=== PATIENT | male | born 1950 | race American Indian/Alaskan Native ===

== ENCOUNTER 2021-03-02 08:19 | Emergency (ER) | payer MEDICARE ==
[2021-03-02 09:15] VITALS: BP 168/82
--- NOTE | 2021-03-02 10:14 | Emergency Department Report ---
ED General Adult HPI - General Chief complaint: Allergic Reaction Stated complaint: FACIAL SWELLING Time Seen by Provider: 03/02/21 09:49 Source: patient Mode of arrival: Ambulatory Limitations: No Limitations - History of Present Illness Initial comments: 71-year-old male with a past medical history of hypertension, diabetes, asthma, and [place], presents to the ER today with complaints of lip and facial swelling. Patient states that he noticed some mild swelling to his lip yesterday while drinking some juice, he states that since then the swelling to sleep has gotten worse including his cheeks. He denies any tongue or throat swelling. He states that because of his asthma he has chronic intermittent cough and wheezing, but this has has not gotten worse since his swelling developed and he denies any shortness of breath. Patient is on lisinopril which he has been taking for his high blood pressure. He denies any other new contacts such as foods, soaps, lotions, antibiotics or any new contacts. She reports no additional symptoms at this time. MD Complaint: Facial swelling -: Gradual - Related Data Previous Rx's Medication Instructions Recorded Last Taken Type methylPREDNISolone [Medrol 4MG 4 mg PO DAILY #1 tab.ds.pk 03/02/21 Unknown Rx DOSEPAK (21 tabs)] Allergies Allergy/AdvReac Type Severity Reaction Status Date / Time lisinopril AdvReac Swelling Verified 03/02/21 09:12 ED Review of Systems ROS: Stated complaint: FACIAL SWELLING Other details as noted in HPI Comment: All other systems reviewed and negative Constitutional: denies: chills, fever Eyes: other. denies: eye pain, eye discharge, vision change ENT: other (Facial/lip swelling). denies: ear pain, throat pain, dental pain, hearing loss, epistaxis, congestion Respiratory: denies: cough, orthopnea, shortness of breath, SOB with exertion, SOB at rest, wheezing Cardiovascular: denies: chest pain, palpitations, dyspnea on exertion, edema, syncope, paroxysmal nocturnal dyspnea Gastrointestinal: denies: abdominal pain, nausea, vomiting, diarrhea, constipation, hematemesis, melena, hematochezia Genitourinary: denies: urgency, dysuria, frequency, hematuria, discharge, testicular pain, testicular mass Musculoskeletal: denies: back pain, joint swelling, arthralgia Skin: denies: rash, lesions, change in color, change in hair/nails, pruritus Neurological: denies: headache, weakness, numbness, paresthesias, confusion, abnormal gait, vertigo Psychiatric: denies: anxiety, depression, auditory hallucinations, visual hallucinations, homicidal thoughts, suicidal thoughts Hematological/Lymphatic: denies: easy bleeding, easy bruising ED Past Medical Hx - Medications Home Medications: Home Medications Medication Instructions Recorded Confirmed Last Taken Type methylPREDNISolone [Medrol 4MG 4 mg PO DAILY #1 tab.ds.pk 03/02/21 Unknown Rx DOSEPAK (21 tabs)] ED Physical Exam - General Limitations: No Limitations General appearance: alert, in no apparent distress - Head Head exam: Present: atraumatic, normocephalic, normal inspection - Eye Eye exam: Present: normal appearance, PERRL, EOMI Pupils: Present: normal accommodation - ENT ENT exam: Present: normal exam, mucous membranes moist, TM's normal bilaterally, other (Moderate swelling noted to the upper lip, mild swelling noted to the lower lip, there is no tongue or swelling to the posterior pharynx) - Expanded ENT Exam Expanded Mouth exam: Present: normal external inspection. Absent: drooling, trismus, muffled voice, tongue normal, tongue elevation Throat exam: Positive: normal inspection - Neck Neck exam: Present: normal inspection, full ROM. Absent: meningismus - Respiratory Respiratory exam: Present: normal lung sounds bilaterally. Absent: respiratory distress, wheezes, rales, rhonchi, stridor - Cardiovascular Cardiovascular Exam: Present: regular rate, normal rhythm, normal heart sounds - Neurological Exam Neurological exam: Present: alert, oriented X3, CN II-XII intact, normal gait - Psychiatric Psychiatric exam: Present: normal affect, normal mood - Skin Skin exam: Present: intact ED Course Vital Signs 03/02/21 09:09 Temperature 98.3 F Pulse Rate 93 H Respiratory 20 Rate Blood Pressure 168/82 O2 Sat by Pulse 98 Oximetry ED Medical Decision Making - Medical Decision Making Patient with angioedema to face/lip likely secondary to JOCELYNE inhibitor (lisinopril). Patient has no trismus, no drooling, no stridor on exam, is not in any respiratory distress, no apparent tongue or posterior pharynx swelling; his airway appears to be intact. His chest is clear to auscultation. His vital signs are stable. Patient was also seen and evaluated by Dr. Stephani Rodrigez, see her note for detail. Patient will be given an IM injection of Decadron, he was instructed to stop the lisinopril and to continue taking his diltiazem until his follow-up with his PCP on March 04 for follow-up. Patient will be disposed home with a prescription for a Medrol Dosepak. Patient expressed understanding of all instructions and agree with plan. Patient was stable at time of discharge. Critical care attestation.: If time is entered above; I have spent that time in minutes in the direct care of this critically ill patient, excluding procedure time. ED Disposition Clinical Impression: JOCELYNE inhibitor-aggravated angioedema Disposition: HOME / SELF CARE / HOMELESS Is pt being admited?: No Does the pt Need Aspirin: No Condition: Stable Instructions: Angioedema, Ijpq-[id number] Additional Instructions: I recommend that you stop taking the lisinopril. Continue taking your diltiazem as prescribed. I recommend that you keep your appointment with your primary care doctor for March 04. Take the steroid pack as prescribed. Return to the ER if the swelling worsens, if your tongue and throat starts to swelling and you start having difficulty breathing. Prescriptions: methylPREDNISolone [Medrol 4MG DOSEPAK (21 tabs)] 4 mg PO DAILY #1 tab.ds.pk Referrals: PRIMARY CARE, [Primary Care Provider] - 3-5 Days Time of Disposition: 10:52 Print Language: LAO
[2021-03-02] MEDS ORDERED: dexAMETHasone 20 MG/5 ML VIAL IM ONE (10:16)
--- NOTE | 2021-03-02 10:21 | Event Note ---
Face to Face: For this encounter I have reviewed the PA/ECONOMICS CONSULTANT documentation, treatment plan, medical decision making, and I had face to face time with this patient. I evaluated patient: Patient has mild swelling of the lips. No oropharyngeal involvement otherwise. No involvement of the tongue or throat. He takes diltiazem in addition to lisinopril. I feel comfortable discontinuing lisinopril without adding another antihypertensive medication at this time. He has [facility] days on March 04. Advised him to take his discharge paperwork to his [facility] physician. I advised him to change his allergy status to allergic to lisinopril. He understands that this type of medication will cause worsening symptoms in the future. My colleagues will order steroid therapy and discharge from the emergency department.
== END 2021-03-02 11:25 | disposition home or self-care (01) ==
LOC: ED 08:19
DX: R60.9 Edema, unspecified (principal); T46.4X5A Adverse effect of angiotensin-converting-enzyme inhibitors, initial encounter; I10 Essential (primary) hypertension; J45.909 Unspecified asthma, uncomplicated
CPT/HCPCS: 96372; 99282; J1100

== ENCOUNTER 2021-06-18 17:18 | Inpatient (IN) | payer OTHER, MEDICARE ==
--- NOTE | 2021-06-18 17:56 | Emergency Department Report ---
HPI - General Chief Complaint: Neuro Symptoms/Deficit Time Seen by Provider: 06/18/21 17:37 - HPI HPI: 71-year-old -[place] male was originally brought in by his son for evaluation of a 2-day history of right-sided numbness and weakness. The initial triage note says that the patient was awake, alert, oriented, playing on his phone. When I went out to MSE 6 to evaluate the patient he was diaphoretic and unresponsive. We immediately wheeled the patient back to ER room #1 with the patient became more responsive. An Accu-Chek was done that was at about 115. The patient became oriented, AAO x3, and says that he did not know what just occurred. He has a past medical history of hypertension, [id number] diabetes and coronary artery disease with cardiac stents. He denies any headache, vision change, slurred speech. ED Past Medical Hx - Past Medical History Previous Medical History?: Yes Hx Hypertension: Yes Hx Heart Attack/AMI: Yes Hx Congestive Heart Failure: Yes Hx Asthma: Yes Hx COPD: Yes - Surgical History Hx Pacemaker: No - Social History Smoking Status: Current Every Day Smoker Substance Use Type: Alcohol, Prescribed - Medications Home Medications: Home Medications Medication Instructions Recorded Confirmed Last Taken Type methylPREDNISolone [Medrol 4MG 4 mg PO DAILY #1 tab.ds.pk 03/02/21 Unknown Rx DOSEPAK (21 tabs)] ED Review of Systems ROS: Stated complaint: NEURO SYMPTOMS Other details as noted in HPI Constitutional: diaphoresis, weakness Eyes: denies: eye pain, vision change ENT: denies: ear pain, throat pain Respiratory: wheezing. denies: cough Cardiovascular: denies: chest pain, edema Gastrointestinal: denies: abdominal pain, vomiting Genitourinary: denies: dysuria, discharge Musculoskeletal: denies: back pain, arthralgia Skin: denies: rash, lesions Neurological: weakness, numbness Physical Exam - Physical Exam Vital Signs: Vital Signs 06/18/21 17:20 Temperature 98.3 F Pulse Rate 54 L Respiratory 20 Rate Blood Pressure 139/58 O2 Sat by Pulse 99 Oximetry Physical Exam: GENERAL: The patient is ill-appearing. HENT: Normocephalic. Atraumatic. Patient has moist mucous membranes. EYES: Extraocular motions are intact. Pupils equal reactive to light bilaterally. NECK: Supple. Trachea is midline. CHEST/LUNGS: Clear to auscultation. There is no respiratory distress noted. HEART/CARDIOVASCULAR: Regular. There is no tachycardia. There is no murmur. ABDOMEN: Abdomen is soft, nontender. Patient has normal bowel sounds. There is no abdominal distention. SKIN: Patient is diaphoretic. NEURO: The patient is awake, alert, and oriented. The patient is cooperative. Subjective decrease sensation to the right side of the face, arm and leg when compared to the left. Mild right upper extremity pronator drift. Normal spe ech. MUSCULOSKELETAL: There is no tenderness or deformity. There is no limitation range of motion. ED Course Vital Signs 06/18/21 17:20 Temperature 98.3 F Pulse Rate 54 L Respiratory 20 Rate Blood Pressure 139/58 O2 Sat by Pulse 99 Oximetry - Consultations Consultation #1: 06/18/21 23:43 Patient was seen by the telemedicine neurologist, Dr. Loo, who did recommend CT angiography studies given the brief unresponsive episode I described. Her full recommendations are in the chart. ED Medical Decision Making - Lab Data Result diagrams: 06/18/21 17:59 06/18/21 17:59 Lab Results 06/18/21 06/18/21 06/18/21 Range/Units 17:42 17:59 17:59 WBC 3.0 L (4.5-11.0) K/mm3 RBC 4.59 (3.65-5.03) M/mm3 Hgb 14.9 (11.8-15.2) gm/dl Hct 44.9 (35.5-45.6) % MCV 98 H (84-94) fl MCH 32 (28-32) pg MCHC 33 (32-34) % RDW 15.8 H (13.2-15.2) % Plt Count 152 (140-440) K/mm3 Lymph % (Auto) 34.4 (13.4-35.0) % Barton % (Auto) 12.7 H (0.0-7.3) % Eos % (Auto) 1.7 (0.0-4.3) % Baso % (Auto) 1.1 (0.0-1.8) % Lymph # (Auto) 1.0 L (1.2-5.4) K/mm3 Barton # (Auto) 0.4 (0.0-0.8) K/mm3 Eos # (Auto) 0.1 (0.0-0.4) K/mm3 Baso # (Auto) 0.0 (0.0-0.1) K/mm3 Seg Neutrophils % 50.1 (40.0-70.0) % Seg Neutrophils # 1.5 L (1.8-7.7) K/mm3 PT 12.9 (12.2-14.9) Sec. INR 0.88 (0.87-1.13) APTT 33.6 (24.2-36.6) Sec. Thrombin Time 14.0 L (15.1-19.6) Sec. Sodium (137-145) mmol/L Potassium (3.6-5.0) mmol/L Chloride (98-107) mmol/L Carbon Dioxide (22-30) mmol/L Anion Gap mmol/L BUN (9-20) mg/dL Creatinine (0.8-1.3) mg/dL Estimated GFR ml/min BUN/Creatinine Ratio % Glucose (75-100) mg/dL POC Glucose 121 H (70-105) mg/dL Calcium (8.4-10.2) mg/dL Total Bilirubin (0.1-1.2) mg/dL AST (5-40) units/L ALT (7-56) units/L Alkaline Phosphatase (35-129) units/L Total Creatine Kinase (55-170) units/L CK-MB (CK-2) (0.0-4.0) ng/mL CK-MB (CK-2) Rel Index (0-4) Troponin T (0.00-0.029) ng/mL Total Protein (6.3-8.2) g/dL Albumin (3.9-5) g/dL Albumin/Globulin Ratio % Plasma/Serum Alcohol (0-0.07) % 06/18/21 06/18/21 Range/Units 17:59 17:59 WBC (4.5-11.0) K/mm3 RBC (3.65-5.03) M/mm3 Hgb (11.8-15.2) gm/dl Hct (35.5-45.6) % MCV (84-94) fl MCH (28-32) pg MCHC (32-34) % RDW (13.2-15.2) % Plt Count (140-440) K/mm3 Lymph % (Auto) (13.4-35.0) % Barton % (Auto) (0.0-7.3) % Eos % (Auto) (0.0-4.3) % Baso % (Auto) (0.0-1.8) % Lymph # (Auto) (1.2-5.4) K/mm3 Barton # (Auto) (0.0-0.8) K/mm3 Eos # (Auto) (0.0-0.4) K/mm3 Baso # (Auto) (0.0-0.1) K/mm3 Seg Neutrophils % (40.0-70.0) % Seg Neutrophils # (1.8-7.7) K/mm3 PT (12.2-14.9) Sec. INR (0.87-1.13) APTT (24.2-36.6) Sec. Thrombin Time (15.1-19.6) Sec. Sodium 133 L (137-145) mmol/L Potassium 3.2 L (3.6-5.0) mmol/L Chloride 95.0 L (98-107) mmol/L Carbon Dioxide 22 (22-30) mmol/L Anion Gap 19 mmol/L BUN 13 (9-20) mg/dL Creatinine 1.3 (0.8-1.3) mg/dL Estimated GFR > 60 ml/min BUN/Creatinine Ratio 10 % Glucose 156 H (75-100) mg/dL POC Glucose (70-105) mg/dL Calcium 8.7 (8.4-10.2) mg/dL Total Bilirubin 0.40 (0.1-1.2) mg/dL AST 15 (5-40) units/L ALT 9 (7-56) units/L Alkaline Phosphatase 69 (35-129) units/L Total Creatine Kinase 116 (55-170) units/L CK-MB (CK-2) 4.5 H (0.0-4.0) ng/mL CK-MB (CK-2) Rel Index 3.8 (0-4) Troponin T < 0.010 (0.00-0.029) ng/mL Total Protein 6.8 (6.3-8.2) g/dL Albumin 4.2 (3.9-5) g/dL Albumin/Globulin Ratio 1.6 % Plasma/Serum Alcohol < 0.01 (0-0.07) % - EKG Data -: EKG Interpreted by Ri EKG shows normal: sinus rhythm, axis, intervals (Prolonged QT and QTc intervals), QRS complexes, ST-T waves (T wave inversions to the lateral and inferior leads) Rate: bradycardia (51 bpm) - EKG Data When compared to previous EKG there are: previous EKG unavailable Interpretation: other (Sinus bradycardia 51 bpm, prolonged QT and QTc intervals, T wave inversions to the inferior lateral leads. No ST elevation VT) - Radiology Data Radiology results: report reviewed CT head/brain wo con INDICATION: Stroke symptoms. TECHNIQUE: Routine CT head. All CT scans at this location are performed using CT dose reduction for ALARA by means of automated exposure control. COMPARISON: None. FINDINGS: Intracranial: Kaye-white matter differentiation is maintained. No intracranial hemorrhage. No extra axial collection. No hydrocephalus. No herniation. Remote bilateral thalamic lacunar infarctions. Periventricular and centrum semiovale white matter hypoattenuation most consistent with sequela of chronic microvascular disease. Sinuses: Paranasal sinuses and mastoid air cells are essentially clear. Orbits: Globes are intact. Calvarium: No acute fracture. IMPRESSION: 1. No evidence for acute infarction. No intracranial hemorrhage. CT angio neck, CT angio head HISTORY: CVA COMPARISON: None. TECHNIQUE: CTA of the neck and head is performed after IV contrast. 3-D/MIP reformats were postprocessed. Percentage stenosis is determined by direct quantitative measur ements of diseased internal carotid artery diameter compared with normal distal internal carotid artery reference segments or by criteria similar to NASCET where applicable. All CT scans at this location are performed using CT dose reduction for ALARA by means of automated exposure control. FINDINGS: CTA NECK: Aortic arch: No significant abnormality. Cervical vertebral arteries: Mild atherosclerosis. No occlusion or hemodynamically significant stenosis. Common Carotid arteries: No occlusion or hemodynamically significant stenosis. Internal carotid arteries: Bulky atherosclerosis involving the proximal internal carotid artery resulting in approximately 30 %narrowing. Bulky atherosclerosis involving the proximal left internal carotid artery without significant stenosis. CTA HEAD: Intracranial internal carotid arteries: Moderate quantity of atherosclerosis in the carotid siphons. No occlusion or high-grade stenosis. Anterior cerebral arteries: No occlusion or significant stenosis. Middle cerebral arteries: No occlusion or significant stenosis. Intracranial vertebral arteries: No occlusion or significant stenosis. Basilar artery: No occlusion or significant stenosis. Posterior cerebral arteries: No occlusion or significant stenosis. No aneurysm. Additional findings: Mild paraseptal emphysema seen within the visualized lung parenchyma.. IMPRESSION: 1. CTA NECK: No occlusion or high grade stenosis of the carotid or vertebral arteries. Approximately 30% stenosis involving the right proximal internal carotid artery. 2. CTA HEAD: No proximal large vessel occlusion. No high-grade stenosis of the major intracranial vasculature. - Medical Decision Making The patient presents to the emergency department with a complaint of a 2-day history of some right-sided numbness. Triage note stated that the patient was awake and alert, playing on his phone. When I went to see the patient in his MSE room he was unresponsive and severely diaphoretic. When I shook the patient he did open his eyes but continued to have what sounded like snoring r espirations and was unresponsive to any of my commands or questions. The patient was rushed back to room #1 where he became awake and alert over the next few minutes but continued to have some diaphoresis. During my examination at this time the patient was an NIH stroke scale of 2 with right-sided numbness when compared to the left and a mild right upper extremity drift. The patient had a CT scan of the head without contrast that did not show any hemorrhage, large vessel occlusion, or any other acute process. He was seen by the telemedicine neurologist who had an NIH stroke scale of 2 as well for the numbness and some dysarthria. She recommended CT angiography studies of the head and neck. These were completed but did not show any occlusion, stenosis, or any acute process. Patient's labs are mostly unremarkable. He will be admitted to the hospital for further evaluation and treatment and was accepted for admission by the hospitalist, Dr. Luo. Critical Care Time: Yes Critical care time in (mins) excluding proc time.: 35 Critical care attestation.: If time is entered above; I have spent that time in minutes in the direct care of this critically ill patient, excluding procedure time. Critical care time was spent on this patient in doing his initial evaluation, multiple reevaluations, ordering and interpretation of labs and imaging, discussion with the telemedicine neurologist, multiple discussions with the patient. Critical Care Time: 35 minutes ED Disposition Clinical Impression: Tobacco use disorder, Bronchospasm CVA (cerebral vascular accident) Qualifiers: CVA mechanism: unspecified Qualified Code(s): I63.9 - Cerebral infarction, unspecified Hypertension Qualifiers: Hypertension type: primary hypertension Qualified Code(s): I10 - Essential (primary) hypertension Disposition: ADMITTED INPATIENT Is pt being admited?: Yes Condition: Fair Time of Disposition: 21:36 - Assessment Assessment Interval: Baseline - Level of Consciousness 1a. Level of Consciousness: alert/keenly responsive - LOC Questions 1b. LOC Questions: answers both correctly - LOC Command 1c. LOC Commands: performs tasks correctly - Best Gaze 2. Best Gaze: normal - Visual 3. Visual: no visual loss - Facial Palsy 4. Facial Palsy: normal symmetrical movement - Motor Arm 5a. Motor Arm Left: no drift 5b. Motor Arm Right: drift - Motor Leg 6a. Motor Leg Left: no drift 6b. Motor Leg Right: no drift - Limb Ataxia 7. Limb Ataxia: absent - Sensory 8. Sensory: mild/moderate sensory loss - Best Language 9. Best Language: no aphasia - Dysarthria 10. Dysarthria: normal - Extinction and Inattention 11. Extinction/Inattention: no abnormality - Scoring Total Score: 2 Stroke Severity: Minor Stroke
[2021-06-18 18:18] LABS: Basophils % (Auto) 1.1 % (0.0-1.8); Eosinophils # (Auto) 0.1 K/mm3 (0.0-0.4); Eosinophils % (Auto) 1.7 % (0.0-4.3); Hematocrit 44.9 % (35.5-45.6); Hemoglobin 14.9 gm/dl (11.8-15.2); Lymphocytes % (Auto) 34.4 % (13.4-35.0); Mean Corpuscular HGB Conc 33 % (32-34); Mean Corpuscular Volume 98 fl (84-94); Monocytes # (Auto) 0.4 K/mm3 (0.0-0.8); Monocytes % (Auto) 12.7 % (0.0-7.3); Platelet Count 152 K/mm3 (140-440); Red Blood Count 4.59 M/mm3 (3.65-5.03); Red Cell Distribution Width 15.8 % (13.2-15.2)
[2021-06-18 18:35] LABS: INR 0.88 (0.87-1.13)
[2021-06-18 18:36] LABS: Partial Thromboplastin Time 33.6 Sec. (24.2-36.6)
[2021-06-18 19:06] LABS: Creatine Kinase MB 4.5 ng/mL (0.0-4.0)
[2021-06-18 19:08] LABS: Alanine Aminotransferase 9 units/L (7-56); Albumin 4.2 g/dL (3.9-5); BUN/Creatinine Ratio 10; Blood Urea Nitrogen 13 mg/dL (9-20); Calcium 8.7 mg/dL (8.4-10.2); Hemolysis Index 7
[2021-06-18] MEDS ORDERED: POTASSIUM CHLORIDE ER 10 MEQ TAB PO ONE (19:09)
--- NOTE | 2021-06-18 19:48 | Cat Scan Report ---
CT head/brain wo con INDICATION: Stroke symptoms. TECHNIQUE: Routine CT head. All CT scans at this location are performed using CT dose reduction for A LOGAN by means of automated exposure control. COMPARISON: None. FINDINGS: Intracranial: Kaye-white matter differentiation is maintained. No intracranial hemorrhage. No extra a xial collection. No hydrocephalus. No herniation. Remote bilateral thalamic lacunar infarctions. Rita ventricular and centrum semiovale white matter hypoattenuation most consistent with sequela of chroni c microvascular disease. Sinuses: Paranasal sinuses and mastoid air cells are essentially clear. Orbits: Globes are intact. Calvarium: No acute fracture. IMPRESSION: 1. No evidence for acute infarction. No intracranial hemorrhage. Signer Name: Deandre Fierro MD Signed: 06/18/2021 7:43 PM Workstation Name: [id number]
[2021-06-18] MEDS ORDERED: ASPIRIN 81 MG TAB CHEW PO ONE (19:52)
[2021-06-18] MEDS ORDERED: IPRATROPIUM/ALBUTEROL SULFATE 3 ML AMPUL.NEB IH ONE (19:52)
[2021-06-18] MEDS ORDERED: methylPREDNISolone Sod Succinate 125 MG/2 ML INJ IV ONE (19:52)
--- NOTE | 2021-06-18 20:08 | Emergency Department Report ---
Blank Doc - Documentation Documentation: [facility] Consult Note # Demographics Consult Type: General Neurology Patient Location: Emergency Room First Name: Lui Last Name: Dwight Date of : 1950 Age: 71 Gender: Male Facility: [facility] Time of Initial Page ( Time): 06/18/2021, 19:54 Time of Return Call ( Time): 06/18/2021, 19:54 # HPI History: 2 days of facial numbness, mostly in the face. then had decreased LOC and was snoring respiration with diaphoresis. no history of seizures he reports also his balance has felt off. he reprots his children noticed his voice was slurred. he denies having slurred speech currently. # Scores Time of exam and NIHSS (): 06/18/2021, 20:03 Level of Consciousness 1a: [0] = Alert; keenly responsive LOC Questions 1b: [0] = Answers both questions correctly LOC Commands 1c: [0] = Performs both tasks correctly Best Gaze 2: [0] = Normal Visual 3: [0] = No visual loss Facial Palsy 4: [0] = Normal symmetrical movements Motor Arm Left 5a: [0] = No drift Motor Arm Right 5b: [0] = No drift Motor Leg Left 6a: [0] = No drift Motor Leg Right 6b: [0] = No drift Limb Ataxia 7: [0] = Absent Sensory 8: [1] = Hquf-ut-mjgsvxvz sensory loss Best Language 9: [0] = No aphasia Dysarthria 10: [1] = Lddu-ms-tckmsile dysarthria Extinction and Inattention 11: [0] = No abnormality NIHSS Total: 2 # Exam Mental Status: awake alert and oriented x 3 follows commands Language: no aphasia dysarthria Cranial Nerves: extra ocular movements intact PERRLA normal facial sensation midl facial droop on the left Motor: no drift Sensory: normal sensation reports equal sensation side to side except in the LEs, decreased on the right upper thigh Cerebellar: normal cerebellar exam # Data Head CT: no bleed per radiologist read # Assessment Impression: paresthesias. odd decreased LOC episdoe # Plan Thrombolytic/Intervention: NOT IV Thrombolysis or IA Intervention candidate Thrombolytic Exclusion: > 4.5 hours Intraarterial Exclusion: clinically consistent with small vessel disease Imaging: (urgency: STAT): CT Angiogram Head and CT Angiogram Neck AND call back with results if abnormal Imaging: (urgency: routine): MRI Brain with AND without contrast Diagnostic Test: echo without bubble study EEG Therapy/Evaluation: NPO until swallow evaluation PT/OT evaluation speech/swallow consultation Other: telemetry monitoring I have discussed my recommendations with the referring provider # Logistics Telemedicine: Interactive 2 way audio and visual telecommunication technology was utilized during this visit
--- NOTE | 2021-06-18 21:17 | Cat Scan Report ---
CT angio neck, CT angio head HISTORY: CVA COMPARISON: None. TECHNIQUE: CTA of the neck and head is performed after IV contrast. 3-D/MIP reformats were postproces sed. Percentage stenosis is determined by direct quantitative measurements of diseased internal mason tid artery diameter compared with normal distal internal carotid artery reference segments or by crit eria similar to NASCET where applicable. All CT scans at this location are performed using CT dose re duction for ALARA by means of automated exposure control. FINDINGS: CTA NECK: Aortic arch: No significant abnormality. Cervical vertebral arteries: Mild atherosclerosis. No occlusion or hemodynamically significant stenos is. Common Carotid arteries: No occlusion or hemodynamically significant stenosis. Internal carotid arteries: Bulky atherosclerosis involving the proximal internal carotid artery resul ting in approximately 30 %narrowing. Bulky atherosclerosis involving the proximal left internal carot id artery without significant stenosis. CTA HEAD: Intracranial internal carotid arteries: Moderate quantity of atherosclerosis in the carotid siphons. No occlusion or high-grade stenosis. Anterior cerebral arteries: No occlusion or significant stenosis. Middle cerebral arteries: No occlusion or significant stenosis. Intracranial vertebral arteries: No occlusion or significant stenosis. Basilar artery: No occlusion or significant stenosis. Posterior cerebral arteries: No occlusion or significant stenosis. No aneurysm. Additional findings: Mild paraseptal emphysema seen within the visualized lung parenchyma.. IMPRESSION: 1. CTA NECK: No occlusion or high grade stenosis of the carotid or vertebral arteries. Approximately 30% stenosis involving the right proximal internal carotid artery. 2. CTA HEAD: No proximal large vessel occlusion. No high-grade stenosis of the major intracranial vas culature. Signer Name: Deandre Fierro MD Signed: 06/18/2021 9:12 PM Workstation Name: [id number]
[2021-06-18] MEDS ORDERED: HYDROmorphone 1 MG/1 ML INJ IV PRN (21:59)
[2021-06-18] MEDS ORDERED: ACETAMINOPHEN 325 MG TAB PO PRN (21:59)
[2021-06-18] MEDS ORDERED: ONDANSETRON 4 MG/2 ML INJ IV PRN (21:59)
[2021-06-18] MEDS ORDERED: ALBUTEROL 2.5 MG/3 ML NEBU IH PRN (21:59)
[2021-06-18] MEDS ORDERED: MORPHINE 2 MG/1 ML INJ IV PRN (21:59)
[2021-06-18] MEDS ORDERED: D5W/0.9% NACL 1,000 ML IV SCH (22:00)
--- NOTE | 2021-06-18 22:10 | History and Physical Report ---
History of Present Illness Date of examination: 06/18/21 Date of admission: 06/18/21 Chief complaint: Right-sided numbness and weakness History of present illness: 71-year-old -[place] male with past medical history of hypertension, [id number] DM and CAD with a stent was brought to the emergency room by his son for evaluation of a 2-day history of right-sided numbness and weakness. The initial triage note says that the patient was awake, alert, oriented, playing on his phone. When I went out to [facility] to evaluate the patient he was diaphoretic and unresponsive. We immediately wheeled the patient back to ER room #1 with the patient became more responsive. An Accu-Chek was done that was at about 115. The patient became oriented, AAO x3, and says that he did not know what just occurred. He denies any headache, vision change, slurred speech. Initial CT scan of the head shows no acute intracranial abnormality. CTA of the head and neck is negative. Subsequently patient was seen and evaluated by teleneurology who recommended to admit the patient for further work-up. Past History Past Medical History: CAD, diabetes, hyperthyroidism Past Surgical History: Other Medications and Allergies Allergies Allergy/AdvReac Type Severity Reaction Status Date / Time lisinopril AdvReac Swelling Verified 03/02/21 09:12 Home Medications Medication Instructions Recorded Confirmed Last Taken Type methylPREDNISolone [Medrol 4MG 4 mg PO DAILY #1 tab.ds.pk 03/02/21 Unknown Rx DOSEPAK (21 tabs)] Active Meds: Active Medications Acetaminophen (Acetaminophen 325 Mg Tab) 650 mg PO Q4H PRN PRN Reason: Pain MILD(1-3)/Fever >100.5/MACK Albuterol (Albuterol 2.5 Mg/3 Ml Nebu) 2.5 mg IH Q4HRT PRN PRN Reason: Shortness Of Breath Albuterol/Ipratropium (Ipratropium/Albuterol Sulfate 3 Ml Ampul.Neb) 1 ampul IH Q6HRT YULIYA Aspirin (Aspirin 325 Mg Tab) 325 mg PO QDAY YULIYA Atorvastatin Calcium (Atorvastatin 40 Mg Tab) 40 mg PO QHS YULIYA Famotidine (Famotidine 20 Mg Tab) 20 mg PO BID YULIYA Heparin Sodium (Porcine) (Heparin 5,000 Unit/1 Ml Vial) 5,000 unit SUB-Q Q12HR YULIYA Hydromorphone HCl (Hydromorphone 1 Mg/1 Ml Inj) 0.5 mg IV Q3H PRN PRN Reason: Pain , Severe (7-10) Dextrose/Sodium Chloride (D5ns) 1,000 mls @ 75 mls/hr IV DIRECT YULIYA Labetalol HCl (Labetalol 20 Mg/4 Ml Inj) 10 mg IV Q5MIN PRN PRN Reason: to maintain SBP < 180 Morphine Sulfate (Morphine 2 Mg/1 Ml Inj) 2 mg IV Q4H PRN PRN Reason: Pain, Moderate (4-6) Ondansetron HCl (Ondansetron 4 Mg/2 Ml Inj) 4 mg IV Q8H PRN PRN Reason: Nausea And Vomiting Sodium Chloride (Sodium Chloride 0.9% 10 Ml Flush Syringe) 10 ml IV BID YULIYA Sodium Chloride (Sodium Chloride 0.9% 10 Ml Flush Syringe) 10 ml IV PRN PRN PRN Reason: LINE FLUSH Sodium Chloride (Sodium Chloride 0.9% 10 Ml Flush Syringe) 10 ml INJ PRN PRN PRN Reason: LINE FLUSH Review of Systems All systems: negative Constitutional: weakness Neurological: weakness, numbness, change in speech, change in mentation Exam - Constitutional Vitals: Temp Pulse Resp BP Pulse Ox 98.3 F 52 L 15 158/66 99 06/18/21 17:26 06/18/21 20:31 06/18/21 20:31 06/18/21 20:31 06/18/21 20:31 General appearance: Present: no acute distress, well-nourished - EENT Eyes: Present: PERRL ENT: hearing intact, clear oral mucosa - Neck Neck: Present: supple, normal ROM - Respiratory Respiratory effort: normal Respiratory: bilateral: diminished - Cardiovascular Heart Sounds: Present: S1 & S2. Absent: rub, click - Extremities Extremities: pulses symmetrical, No edema Peripheral Pulses: within normal limits - Abdominal General gastrointestinal: Present: soft, non-tender, non-distended, normal bowel sounds Male genitourinary: Present: normal - Integumentary Integumentary: Present: clear, warm, dry - Musculoskeletal Musculoskeletal: gait normal, strength equal bilaterally - Psychiatric Psychiatric: appropriate mood/affect, intact judgment & insight - Neurologic Neurologic: CNII-XII intact, moves all extremities HEART Score - HEART Score Troponin: Troponin T < 0.010 ng/mL (0.00-0.029) 06/18/21 17:59 Results - Labs CBC & Chem 7: 06/18/21 17:59 06/18/21 17:59 Labs: Laboratory Last Values WBC 3.0 K/mm3 (4.5-11.0) L 06/18/21 17:59 RBC 4.59 M/mm3 (3.65-5.03) 06/18/21 17:59 Hgb 14.9 gm/dl (11.8-15.2) 06/18/21 17:59 Hct 44.9 % (35.5-45.6) 06/18/21 17:59 MCV 98 fl (84-94) H 06/18/21 17:59 MCH 32 pg (28-32) 06/18/21 17:59 MCHC 33 % (32-34) 06/18/21 17:59 RDW 15.8 % (13.2-15.2) H 06/18/21 17:59 Plt Count 152 K/mm3 (140-440) 06/18/21 17:59 Lymph % (Auto) 34.4 % (13.4-35.0) 06/18/21 17:59 [place] % (Auto) 12.7 % (0.0-7.3) H 06/18/21 17:59 Eos % (Auto) 1.7 % (0.0-4.3) 06/18/21 17:59 Baso % (Auto) 1.1 % (0.0-1.8) 06/18/21 17:59 Lymph # (Auto) 1.0 K/mm3 (1.2-5.4) L 06/18/21 17:59 [place] # (Auto) 0.4 K/mm3 (0.0-0.8) 06/18/21 17:59 Eos # (Auto) 0.1 K/mm3 (0.0-0.4) 06/18/21 17:59 Baso # (Auto) 0.0 K/mm3 (0.0-0.1) 06/18/21 17:59 Seg Neutrophils % 50.1 % (40.0-70.0) 06/18/21 17:59 Seg Neutrophils # 1.5 K/mm3 (1.8-7.7) L 06/18/21 17:59 PT 12.9 Sec. (12.2-14.9) 06/18/21 17:59 INR 0.88 (0.87-1.13) 06/18/21 17:59 APTT 33.6 Sec. (24.2-36.6) 06/18/21 17:59 Thrombin Time 14.0 Sec. (15.1-19.6) L 06/18/21 17:59 Sodium 133 mmol/L (137-145) L 06/18/21 17:59 Potassium 3.2 mmol/L (3.6-5.0) L 06/18/21 17:59 Chloride 95.0 mmol/L (98-107) L 06/18/21 17:59 Carbon Dioxide 22 mmol/L (22-30) 06/18/21 17:59 Anion Gap 19 mmol/L 06/18/21 17:59 BUN 13 mg/dL (9-20) 06/18/21 17:59 Creatinine 1.3 mg/dL (0.8-1.3) 06/18/21 17:59 Estimated GFR > 60 ml/min 06/18/21 17:59 BUN/Creatinine Ratio 10 % 06/18/21 17:59 Glucose 156 mg/dL (75-100) H 06/18/21 17:59 POC Glucose 121 mg/dL (70-105) H 06/18/21 17:42 Calcium 8.7 mg/dL (8.4-10.2) 06/18/21 17:59 Total Bilirubin 0.40 mg/dL (0.1-1.2) 06/18/21 17:59 AST 15 units/L (5-40) 06/18/21 17:59 ALT 9 units/L (7-56) 06/18/21 17:59 Alkaline Phosphatase 69 units/L (35-129) 06/18/21 17:59 Total Creatine Kinase 116 units/L (55-170) 06/18/21 17:59 CK-MB (CK-2) 4.5 ng/mL (0.0-4.0) H 06/18/21 17:59 CK-MB (CK-2) Rel Index 3.8 (0-4) 06/18/21 17:59 Troponin T < 0.010 ng/mL (0.00-0.029) 06/18/21 17:59 Total Protein 6.8 g/dL (6.3-8.2) 06/18/21 17:59 Albumin 4.2 g/dL (3.9-5) 06/18/21 17:59 Albumin/Globulin Ratio 1.6 % 06/18/21 17:59 Plasma/Serum Alcohol < 0.01 % (0-0.07) 06/18/21 17:59 - Imaging and Cardiology CT Scan - head: report reviewed Assessment and Plan VTE prophylaxis?: Chemical Plan of care discussed with patient/family: Yes - Patient Problems (1) CVA (cerebral vascular accident) Current Visit: Yes Status: Acute Plan to address problem: Admit the patient to the medical floor. Aspirin 325 mg p.o. daily. Lipitor 40 mg p.o. daily. PT OT and speech evaluation. MRI of the brain and MRI of the brain and neck with and without contrast. EEG. Echocardiogram. Neurology evaluation (2) Diabetes Current Visit: Yes Status: Acute Plan to address problem: We will put the patient on Accu-Chek every 6 hours with Humalog moderate dose coverage. Diabetic education (3) COPD (chronic obstructive pulmonary disease) Current Visit: Yes Status: Acute Plan to address problem: Oxygen via nasal hurtado 3 department at. DuoNeb nebulizer every 4 hours. Albuterol by nebulizer every 4 hours as needed (4) Hypertension Current Visit: Yes Status: Acute Plan to address problem: Labetalol 10 mg IV every 6 hours as needed. We continue the home medication (5) Tobacco use disorder Current Visit: Yes Status: Acute Plan to address problem: We counseled the patient regarding quitting smoking. We will put the patient on nicotine patch if needed (6) CAD (coronary artery disease) Current Visit: Yes Status: Acute Plan to address problem: Aspirin 325 mg p.o. daily. Lipitor 40 mg p.o. daily. Echocardiogram. Outpatient follow-up with cardiology (7) DVT prophylaxis Current Visit: Yes Status: Acute Plan to address problem: Heparin 5000 units subcu every 12 hours for DVT prophylaxis. Pepcid 20 mg p.o. twice daily for GI prophylaxis. Patient is a full code
[2021-06-18] MEDS: HEPARIN 5,000 UNIT/1 ML VIAL SUB-Q SCH (23:03)
[2021-06-18] MEDS: FAMOTIDINE 20 MG TAB PO SCH (23:03)
[2021-06-19] MEDS: IPRATROPIUM/ALBUTEROL SULFATE 3 ML AMPUL.NEB IH SCH ×4 (02:45→19:45)
[2021-06-19 05:33] LABS: Basophils % (Auto) 0.3 % (0.0-1.8); Eosinophils % (Auto) 0.1 % (0.0-4.3); Hematocrit 43.4 % (35.5-45.6); Lymphocytes # (Auto) 0.3 K/mm3 (1.2-5.4); Mean Corpuscular HGB Conc 32 % (32-34); Mean Corpuscular Volume 100 fl (84-94); Monocytes # (Auto) 0.1 K/mm3 (0.0-0.8); Platelet Count 142 K/mm3 (140-440); Red Blood Count 4.35 M/mm3 (3.65-5.03); Red Cell Distribution Width 15.8 % (13.2-15.2)
[2021-06-19 05:54] LABS: BUN/Creatinine Ratio 13; Blood Urea Nitrogen 13 mg/dL (9-20); Calcium 8.6 mg/dL (8.4-10.2); Hemolysis Index 24
--- NOTE | 2021-06-19 07:13 | XRay Report ---
CHEST 1 VIEW 06/19/2021 6:36 AM INDICATION / CLINICAL INFORMATION: Wheezing. COMPARISON: None available. FINDINGS: SUPPORT DEVICES: None. HEART / MEDIASTINUM: No significant abnormality. LUNGS / PLEURA: No significant pulmonary or pleural abnormality. No pneumothorax. ADDITIONAL FINDINGS: No significant additional findings. IMPRESSION: 1. No acute findings. Signer Name: Juan Carlos Tolbert MD Signed: 06/19/2021 7:09 AM Workstation Name: [id number]
--- NOTE | 2021-06-19 09:19 | Progress Note ---
Assessment and Plan Assessment and plan: --CVA (cerebral vascular accident) Current Visit: Yes Status: Acute Not candidate for tPA Continue aspirin 325 mg p.o. daily. Continue Lipitor 40 mg p.o. daily. Follow neuro work-up PT OT and speech, rehab evaluation. MRI of the brain and MRI of the brain and neck with and without contrast. EEG. Echocardiogram. Neurology evaluation --Type II diabetes Current Visit: Yes Status: Acute We will put the patient on Accu-Chek every 6 hours with Humalog moderate dose coverage. Diabetic education --History of COPD (chronic obstructive pulmonary disease) Current Visit: Yes Status: Acute Oxygen , titrate O2 sats to more than 90% DuoNeb nebulizer every 4 hours. Albuterol by nebulizer every 4 hours as needed --Hypertension Current Visit: Yes Status: Acute Labetalol 10 mg IV every 6 hours as needed. We continue the home medication --Tobacco use disorder Current Visit: Yes Status: Acute We counseled the patient regarding quitting smoking. Will recommend nicotine patch if needed Smoking cessation counseling done Strongly advised to quit tobacco use -- CAD (coronary artery disease) Current Visit: Yes Status: Acute : Aspirin 325 mg p.o. daily. Lipitor 40 mg p.o. daily. Echocardiogram. Outpatient follow-up with cardiology --Full CODE STATUS -DVT prophylaxis Current Visit: Yes Status: Acute Subcu heparin GI prophylaxis ;Pepcid 20 mg p.o. twice daily Patient is a full code We will closely monitor the patient and adjust the management as needed Follow neuro work-up, will consult neurology tomorrow when neuro services available Advance care plan ;+32 min Patient's condition explained in detail with the patient Initial tests and reports discussed with the patient Diagnosis informed and explained Plan of care discussed in detail with the patient PT OT evaluation and possible home health at discharge if needed explained plan of care reviewed with patient, verbalized understanding History Interval history: I have seen and examined the patient at the bedside in the ED awaiting room assignment Patient's chart and medications reviewed Patient was admitted with right-sided numbness and weakness and neuro symptoms Neuro work-up is in progress Patient reports that he feels slightly better Hospitalist Physical - Constitutional Vitals: Temp Pulse Resp BP Pulse Ox 97.5 F L 76 16 137/65 98 06/19/21 07:15 06/19/21 07:01 06/19/21 07:01 06/19/21 07:01 06/19/21 04:00 General appearance: Present: no acute distress, well-nourished - EENT Eyes: Present: PERRL, EOM intact - Neck Neck: Present: supple, normal ROM - Respiratory Respiratory effort: normal Respiratory: bilateral: diminished, negative: rales, rhonchi, wheezing - Cardiovascular Rhythm: regular Heart Sounds: Present: S1 & S2 - Extremities Extremities: no ischemia - Abdominal General gastrointestinal: soft, non-tender, non-distended, normal bowel sounds - Integumentary Integumentary: Present: clear, warm - Psychiatric Psychiatric: appropriate mood/affect, cooperative - Neurologic Neurologic: moves all extremities HEART Score - HEART Score Troponin: Troponin T < 0.010 ng/mL (0.00-0.029) 06/18/21 17:59 Results - Labs CBC & Chem 7: 06/19/21 05:08 06/19/21 05:08 Labs: Laboratory Last Values WBC 2.4 K/mm3 (4.5-11.0) L 06/19/21 05:08 RBC 4.35 M/mm3 (3.65-5.03) 06/19/21 05:08 Hgb 14.0 gm/dl (11.8-15.2) 06/19/21 05:08 Hct 43.4 % (35.5-45.6) 06/19/21 05:08 MCV 100 fl (84-94) H 06/19/21 05:08 MCH 32 pg (28-32) 06/19/21 05:08 MCHC 32 % (32-34) 06/19/21 05:08 RDW 15.8 % (13.2-15.2) H 06/19/21 05:08 Plt Count 142 K/mm3 (140-440) 06/19/21 05:08 Lymph % (Auto) 12.0 % (13.4-35.0) L 06/19/21 05:08 [place] % (Auto) 3.0 % (0.0-7.3) 06/19/21 05:08 Eos % (Auto) 0.1 % (0.0-4.3) 06/19/21 05:08 Baso % (Auto) 0.3 % (0.0-1.8) 06/19/21 05:08 Lymph # (Auto) 0.3 K/mm3 (1.2-5.4) L 06/19/21 05:08 [place] # (Auto) 0.1 K/mm3 (0.0-0.8) 06/19/21 05:08 Eos # (Auto) 0.0 K/mm3 (0.0-0.4) 06/19/21 05:08 Baso # (Auto) 0.0 K/mm3 (0.0-0.1) 06/19/21 05:08 Seg Neutrophils % 84.6 % (40.0-70.0) H 06/19/21 05:08 Seg Neutrophils # 2.0 K/mm3 (1.8-7.7) 06/19/21 05:08 PT 12.9 Sec. (12.2-14.9) 06/18/21 17:59 INR 0.88 (0.87-1.13) 06/18/21 17:59 APTT 33.6 Sec. (24.2-36.6) 06/18/21 17:59 Thrombin Time 14.0 Sec. (15.1-19.6) L 06/18/21 17:59 Sodium 134 mmol/L (137-145) L 06/19/21 05:08 Potassium 4.0 mmol/L (3.6-5.0) D 06/19/21 05:08 Chloride 98.0 mmol/L (98-107) 06/19/21 05:08 Carbon Dioxide 20 mmol/L (22-30) L 06/19/21 05:08 Anion Gap 20 mmol/L 06/19/21 05:08 BUN 13 mg/dL (9-20) 06/19/21 05:08 Creatinine 1.0 mg/dL (0.8-1.3) 06/19/21 05:08 Estimated GFR > 60 ml/min 06/19/21 05:08 BUN/Creatinine Ratio 13 % 06/19/21 05:08 Glucose 186 mg/dL (75-100) H 06/19/21 05:08 POC Glucose 121 mg/dL (70-105) H 06/18/21 17:42 Calcium 8.6 mg/dL (8.4-10.2) 06/19/21 05:08 Total Bilirubin 0.40 mg/dL (0.1-1.2) 06/18/21 17:59 AST 15 units/L (5-40) 06/18/21 17:59 ALT 9 units/L (7-56) 06/18/21 17:59 Alkaline Phosphatase 69 units/L (35-129) 06/18/21 17:59 Total Creatine Kinase 116 units/L (55-170) 06/18/21 17:59 CK-MB (CK-2) 4.5 ng/mL (0.0-4.0) H 06/18/21 17:59 CK-MB (CK-2) Rel Index 3.8 (0-4) 06/18/21 17:59 Troponin T < 0.010 ng/mL (0.00-0.029) 06/18/21 17:59 Total Protein 6.8 g/dL (6.3-8.2) 06/18/21 17:59 Albumin 4.2 g/dL (3.9-5) 06/18/21 17:59 Albumin/Globulin Ratio 1.6 % 06/18/21 17:59 Plasma/Serum Alcohol < 0.01 % (0-0.07) 06/18/21 17:59 Active Medications - Current Medications Current Medications: Generic Name Dose Route Start Last Admin Trade Name Freq PRN Reason Stop Dose Admin Acetaminophen 650 mg 06/18/21 21:59 Acetaminophen 325 Mg Tab PO Q4H PRN Pain MILD(1-3)/Fever >100.5/MACK Albuterol 2.5 mg 06/18/21 21:59 Albuterol 2.5 Mg/3 Ml Nebu IH Q4HRT PRN Shortness Of Breath Albuterol/Ipratropium 1 ampul 06/19/21 02:00 06/19/21 02:45 Ipratropium/Albuterol Sulfate 3 Ml Ampul.Neb IH Not Given Q6HRT YULIYA Aspirin 325 mg 06/19/21 10:00 Aspirin 325 Mg Tab PO QDAY YULIYA Atorvastatin Calcium 40 mg 06/18/21 22:00 06/18/21 23:03 Atorvastatin 40 Mg Tab PO 40 mg QHS YULIYA Administration Famotidine 20 mg 06/18/21 22:00 06/18/21 23:03 Famotidine 20 Mg Tab PO 20 mg BID YULIYA Administration Heparin Sodium (Porcine) 5,000 unit 06/18/21 22:00 06/18/21 23:03 Heparin 5,000 Unit/1 Ml Vial SUB-Q 5,000 unit Q12HR YULIYA Administration Hydromorphone HCl 0.5 mg 06/18/21 21:59 Hydromorphone 1 Mg/1 Ml Inj IV Q3H PRN Pain , Severe (7-10) Dextrose/Sodium Chloride 1,000 mls @ 75 mls/hr 06/18/21 22:00 06/18/21 23:04 D5ns IV 75 mls/hr DIRECT YULIYA Administration Labetalol HCl 10 mg 06/18/21 21:59 Labetalol 20 Mg/4 Ml Inj IV Q5MIN PRN to maintain SBP < 180 Morphine Sulfate 2 mg 06/18/21 21:59 Morphine 2 Mg/1 Ml Inj IV Q4H PRN Pain, Moderate (4-6) Ondansetron HCl 4 mg 06/18/21 21:59 Ondansetron 4 Mg/2 Ml Inj IV Q8H PRN Nausea And Vomiting Sodium Chloride 10 ml 06/18/21 22:00 06/18/21 23:03 Sodium Chloride 0.9% 10 Ml Flush Syringe IV 10 ml BID YULIYA Administration Sodium Chloride 10 ml 06/18/21 21:59 Sodium Chloride 0.9% 10 Ml Flush Syringe IV PRN PRN LINE FLUSH
[2021-06-19 10:41] LABS: Chol/HDL Ratio 5.05 %
[2021-06-19] MEDS: ASPIRIN 325 MG TAB PO SCH (11:59)
[2021-06-19] MEDS: HEPARIN 5,000 UNIT/1 ML VIAL SUB-Q SCH ×2 (12:00→22:11)
[2021-06-19] MEDS: FAMOTIDINE 20 MG TAB PO SCH ×2 (12:00→22:11)
[2021-06-20] MEDS: hydrALAZINE 20 MG/1 ML INJ IV PRN ×2 (00:43→04:49)
[2021-06-20] MEDS: IPRATROPIUM/ALBUTEROL SULFATE 3 ML AMPUL.NEB IH SCH ×3 (03:07→17:33)
--- NOTE | 2021-06-20 07:47 | Consultation ---
History of Present Illness Consult date: 06/20/21 Reason for Consult: right side weaknessX2 days, near syncopy ? History of present illness: Right-sided numbness and weakness History of present illness: 71-year-old -[place] male with past medical history of hypertension, [id number] DM and CAD with a stent was brought to the emergency room by his son for evaluation of a 2-day history of right-sided numbness and weakness. The initial triage note says that the patient was awake, alert, oriented, playing on his phone. When I went out to [facility] to evaluate the patient he was diaphoretic and unresponsive. We immediately wheeled the patient back to ER room #1 with the patient became more responsive. An Accu-Chek was done that was at about 115. The patient became oriented, AAO x3, and says that he did not know what just occurred. He denies any headache, vision change, slurred speech. Initial CT scan of the head shows no acute intracranial abnormality. CTA of the head and neck is negative. Subsequently patient was seen and evaluated by teleneurology who recommended to admit the patient for further work-up. Initial CT scan of the head shows no acute intracranial abnormality. CTA of the head and neck is negative. Subsequently patient was seen and evaluated by teleneurology who recommended to admit the patient for further work-up. today he is alert oriented to self complain of right side numbness and still slightly unsteady MRI brain is pending staretd on ASA and Lipitor Hx of CVD X 14 years ago Past History Past Medical History: CAD, diabetes, hyperthyroidism Past Surgical History: Other Medications and Allergies Allergies Allergy/AdvReac Type Severity Reaction Status Date / Time lisinopril AdvReac Swelling Verified 03/02/21 09:12 Home Medications Medication Instructions Recorded Confirmed Last Taken Type methylPREDNISolone [Medrol 4MG 4 mg PO DAILY #1 tab.ds.pk 03/02/21 Unknown Rx DOSEPAK (21 tabs)] Active Meds: Active Medications Acetaminophen (Acetaminophen 325 Mg Tab) 650 mg PO Q4H PRN PRN Reason: Pain MILD(1-3)/Fever >100.5/MACK Albuterol (Albuterol 2.5 Mg/3 Ml Nebu) 2.5 mg IH Q4HRT PRN PRN Reason: Shortness Of Breath Albuterol/Ipratropium (Ipratropium/Albuterol Sulfate 3 Ml Ampul.Neb) 1 ampul IH Q6HRT YULIYA Aspirin (Aspirin 325 Mg Tab) 325 mg PO QDAY YULIYA Atorvastatin Calcium (Atorvastatin 40 Mg Tab) 40 mg PO QHS YULIYA Famotidine (Famotidine 20 Mg Tab) 20 mg PO BID YULIYA Heparin Sodium (Porcine) (Heparin 5,000 Unit/1 Ml Vial) 5,000 unit SUB-Q Q12HR YULIYA Hydromorphone HCl (Hydromorphone 1 Mg/1 Ml Inj) 0.5 mg IV Q3H PRN PRN Reason: Pain , Severe (7-10) Dextrose/Sodium Chloride (D5ns) 1,000 mls @ 75 mls/hr IV DIRECT YULIYA Labetalol HCl (Labetalol 20 Mg/4 Ml Inj) 10 mg IV Q5MIN PRN PRN Reason: to maintain SBP < 180 Morphine Sulfate (Morphine 2 Mg/1 Ml Inj) 2 mg IV Q4H PRN PRN Reason: Pain, Moderate (4-6) Ondansetron HCl (Ondansetron 4 Mg/2 Ml Inj) 4 mg IV Q8H PRN PRN Reason: Nausea And Vomiting Sodium Chloride (Sodium Chloride 0.9% 10 Ml Flush Syringe) 10 ml IV BID YULIYA Sodium Chloride (Sodium Chloride 0.9% 10 Ml Flush Syringe) 10 ml IV PRN PRN PRN Reason: LINE FLUSH Sodium Chloride (Sodium Chloride 0.9% 10 Ml Flush Syringe) 10 ml INJ PRN PRN PRN Reason: LINE FLUSH Review of Systems All systems: negative Constitutional: weakness Neurological: weakness, numbness, change in speech, change in mentation Past History Past Medical History: CAD, diabetes, hyperthyroidism Past Surgical History: Other Medications and Allergies Allergies Allergy/AdvReac Type Severity Reaction Status Date / Time lisinopril AdvReac Swelling Verified 03/02/21 09:12 Home Medications Medication Instructions Recorded Confirmed Last Taken Type methylPREDNISolone [Medrol 4MG 4 mg PO DAILY #1 tab.ds.pk 03/02/21 Unknown Rx DOSEPAK (21 tabs)] Active Meds: Active Medications Acetaminophen (Acetaminophen 325 Mg Tab) 650 mg PO Q4H PRN PRN Reason: Pain MILD(1-3)/Fever >100.5/MACK Albuterol (Albuterol 2.5 Mg/3 Ml Nebu) 2.5 mg IH Q4HRT PRN PRN Reason: Shortness Of Breath Albuterol/Ipratropium (Ipratropium/Albuterol Sulfate 3 Ml Ampul.Neb) 1 ampul IH Q6HRT [facility] Last Admin: 06/20/21 03:07 Dose: 1 ampul Aspirin (Aspirin 325 Mg Tab) 325 mg PO QDAY [facility] Last Admin: 06/19/21 11:59 Dose: 325 mg Atorvastatin Calcium (Atorvastatin 40 Mg Tab) 40 mg PO QHS [facility] Last Admin: 06/19/21 22:11 Dose: 40 mg Famotidine (Famotidine 20 Mg Tab) 20 mg PO BID [facility] Last Admin: 06/19/21 22:11 Dose: 20 mg Heparin Sodium (Porcine) (Heparin 5,000 Unit/1 Ml Vial) 5,000 unit SUB-Q Q12HR [facility] Last Admin: 06/19/21 22:11 Dose: 5,000 unit Hydralazine HCl (Hydralazine 20 Mg/1 Ml Inj) 10 mg IV Q6HR PRN PRN Reason: Hypertension Last Admin: 06/20/21 04:49 Dose: 10 mg Hydromorphone HCl (Hydromorphone 1 Mg/1 Ml Inj) 0.5 mg IV Q3H PRN PRN Reason: Pain , Severe (7-10) Dextrose/Sodium Chloride (D5ns) 1,000 mls @ 75 mls/hr IV DIRECT [facility] Last Admin: 06/18/21 23:04 Dose: 75 mls/hr Morphine Sulfate (Morphine 2 Mg/1 Ml Inj) 2 mg IV Q4H PRN PRN Reason: Pain, Moderate (4-6) Last Admin: 06/20/21 05:22 Dose: 2 mg Ondansetron HCl (Ondansetron 4 Mg/2 Ml Inj) 4 mg IV Q8H PRN PRN Reason: Nausea And Vomiting Sodium Chloride (Sodium Chloride 0.9% 10 Ml Flush Syringe) 10 ml IV BID [facility] Last Admin: 06/19/21 22:11 Dose: 10 ml Sodium Chloride (Sodium Chloride 0.9% 10 Ml Flush Syringe) 10 ml IV PRN PRN PRN Reason: LINE FLUSH Physical Examination - Vital Signs Vital Signs: Vital Signs Temp Pulse Resp BP Pulse Ox 98.3 F 54 L 20 139/58 99 06/18/21 17:20 06/18/21 17:20 06/18/21 17:20 06/18/21 17:20 06/18/21 17:20 - Constitutional General appearance: comfortable - EENT EENT: Present: PERRL, mucous membranes moist - Respiratory Respiratory: Present: chest non-tender, lungs clear, rhonchi - Cardiovascular Cardiovascular: Present: regular rate, normal S1, normal S2 Extremities: Present: no peripheral edema bilatateraly, no clubbing, cyanosis - Gastrointestinal Gastrointestinal: Present: normoactive bowel sounds - Integumentary Integumentary: Present: normal - Neurologic Cranial nerve examination: PERRL, EOMI, facial droop, other (decrease sensation right face, no visual field deficit) Speech examination: intact Sensorimotor examination: other (slight right upper and lwoer weakness4-/5 with right side numbness upper and lower ) - Level of Consciousness 1a. Level of Consciousness: alert/keenly responsive - LOC Questions 1b. LOC Questions: answers both correctly - LOC Command 1c. LOC Commands: performs tasks correctly - Best Gaze 2. Best Gaze: normal - Visual 3. Visual: no visual loss - Facial Palsy 4. Facial Palsy: minor paralysis - Motor Arm 5a. Motor Arm Left: no drift 5b. Motor Arm Right: drift - Motor Leg 6a. Motor Leg Left: no drift 6b. Motor Leg Right: drift - Limb Ataxia 7. Limb Ataxia: absent - Sensory 8. Sensory: mild/moderate sensory loss - Best Language 9. Best Language: no aphasia - Dysarthria 10. Dysarthria: normal - Extinction and Inattention 11. Extinction/Inattention: no abnormality - Scoring Total Score: 4 Stroke Severity: Minor Stroke Results - Laboratory Findings CBC and BMP: 06/19/21 05:08 06/19/21 05:08 Abnormal Lab Findings: Abnormal Labs 06/18/21 06/18/21 06/18/21 17:42 17:59 17:59 WBC 3.0 L MCV 98 H RDW 15.8 H Lymph % (Auto) Johnson % (Auto) 12.7 H Lymph # (Auto) 1.0 L Seg Neutrophils % Seg Neutrophils # 1.5 L Thrombin Time 14.0 L Sodium Potassium Chloride Carbon Dioxide Glucose POC Glucose 121 H CK-MB (CK-2) Triglycerides HDL Cholesterol 06/18/21 06/19/21 06/19/21 17:59 05:08 05:08 WBC 2.4 L MCV 100 H RDW 15.8 H Lymph % (Auto) 12.0 L Johnson % (Auto) Lymph # (Auto) 0.3 L Seg Neutrophils % 84.6 H Seg Neutrophils # Thrombin Time Sodium 133 L 134 L Potassium 3.2 L Chloride 95.0 L Carbon Dioxide 20 L Glucose 156 H 186 H POC Glucose CK-MB (CK-2) 4.5 H Triglycerides HDL Cholesterol 06/19/21 05:08 WBC MCV RDW Lymph % (Auto) Johnson % (Auto) Lymph # (Auto) Seg Neutrophils % Seg Neutrophils # Thrombin Time Sodium Potassium Chloride Carbon Dioxide Glucose POC Glucose CK-MB (CK-2) Triglycerides 173 H HDL Cholesterol 35 L Assessment and Plan Assessment and Plan 71-year-old -[place] male with past medical history of hypertension, [id number] DM and CAD with a stent was brought to the emergency room by his son for evaluation of a 2-day history of right-sided numbness and weakness. The initial triage note says that the patient was awake, alert, oriented, playing on his phone. When I went out to [facility] [place] [facility] to evaluate the patient he was diaphoretic and unresponsive. - Patient Problems # Possible CVA (cerebral vascular accident) -he is with right side weakness and numbness -NIH#4 -CT brain is unremarkable -CTA brain and neck are remarkable for 30% stenosis in right proximal ICA -ON ASA and lipitor -MRI brain is pending -EEG is pending -LDL#118 -Echo is pending -cardiac moniter # Possible underlying mild dementia -vascular -Check b12 and TSH -MRI brain # Unsteady gait -possibly related to new CVA -? parietal lesion -MRI brain -PT therapy # Diabetes -We will put the patient on Accu-Chek every 6 hours with Humalog moderate dose coverage. - Diabetic education -A1C is pending # COPD (chronic obstructive pulmonary disease) -Oxygen via nasal [place] 3 department at. - DuoNeb nebulizer every 4 hours. - Albuterol by nebulizer every 4 hours as needed # Hypertension -Labetalol 10 mg IV every 6 hours as needed. - We continue the home medication -BP <150/80 symptoms are > 2 days old # Tobacco use disorder -We counseled the patient regarding quitting smoking. We will put the patient on nicotine patch if needed # CAD (coronary artery disease) -Aspirin 325 mg p.o. daily. - Lipitor 40 mg p.o. daily. - Echocardiogram. -Outpatient follow-up with cardiology # DVT prophylaxis -Heparin 5000 units subcu every 12 hours for DVT prophylaxis. - Pepcid 20 mg p.o. twice daily for GI prophylaxis. - Patient is a full code VTE prophylaxis?: Chemical Plan of care discussed with patient/family: Yes
[2021-06-20] MEDS: FAMOTIDINE 20 MG TAB PO SCH ×2 (12:06→22:18)
[2021-06-20] MEDS: HEPARIN 5,000 UNIT/1 ML VIAL SUB-Q SCH ×2 (12:06→22:19)
[2021-06-20] MEDS: ASPIRIN 325 MG TAB PO SCH (12:06)
--- NOTE | 2021-06-20 12:06 | Magnetic Resonance Report ---
MRI BRAIN 06/20/2021 INDICATION / CLINICAL INFORMATION: stroke. TECHNIQUE: Multiplanar, multisequence MR images of the brain were obtained. COMPARISON: None available. FINDINGS: BRAIN / INTRACRANIAL CONTENTS: Unenhanced MR images of the brain demonstrate an millimeter focus of r estricted diffusion in the dorsal aspect of the brayan, slightly to the left of midline, in the floor o f the fourth ventricle. Increased diffusion weighted signal and decreased ADC signal is present, cons istent with acute ischemic injury. No other areas of restricted diffusion are present. Ventricles and sulci are slightly prominent in size, consistent with normal age-related atrophic elizondo ge. Moderate chronic microangiopathic white matter T2 weighted hyperintensities are present in the pe riventricular deep white matter of cerebral hemispheres and central brainstem.. There is no evidence of hemorrhage or mass. There are no abnormal extra-axial fluid collections. EXTRACRANIAL: Unremarkable CRANIOCERVICAL JUNCTION: No significant abnormality. VASCULAR FLOW-VOIDS: No significant abnormality. IMPRESSION: 1. Focal area of acute ischemic injury in the dorsal left brayan, 9 mm. 2. Chronic small vessel ischemic and age-related changes. Signer Name: Fahad Valdes MD Signed: 06/20/2021 12:01 PM Workstation Name: [id number]
--- NOTE | 2021-06-20 12:11 | Magnetic Resonance Report ---
MRA HEAD 06/20/2021 INDICATION / CLINICAL INFORMATION: stroke, RT SIDED WEAKNESS. TECHNIQUE: Routine MRA of the head is performed. 3-D/MIP reformats postprocessed. COMPARISON: None available. FINDINGS: There is some mild patient motion artifact. This creates some artificial irregularity along the cours e of intracranial vessels. MRA HEAD: Intracranial internal carotid arteries: No significant abnormality. Anterior cerebral arteries: No significant abnormality. Middle cerebral arteries: No significant abnormality. Intracranial vertebral arteries: No significant abnormality. Basilar artery: No significant abnormality. Posterior cerebral arteries: Possible atherosclerotic irregularity bilaterally, slightly greater on t he left. Signer Name: Fahad Valdes MD Signed: 06/20/2021 12:07 PM Workstation Name: [id number]
--- NOTE | 2021-06-20 12:46 | Progress Note ---
Assessment and Plan Assessment and plan: --CVA (cerebral vascular accident) Current Visit: Yes Status: Acute Not candidate for tPA Continue aspirin 325 mg p.o. daily. Continue Lipitor 40 mg p.o. daily. Follow neuro work-up PT OT and speech, rehab evaluation. MRI of the brain and MRI of the brain and neck with and without contrast. EEG. Echocardiogram. Neurology evaluation --Neuro work-up so far CT head without contrast; no evidence of acute infarction no intracranial hemorr morena CTA neck; no occlusion or high-grade stenosis of the carotid or vertebral arteries approximately 30% stenosis CTA head; no proximal large vessel occlusion no high-grade stenosis of the major intracranial vessels MRI brain focal area of acute ischemic injury into dorsal left brayan 9 mm, Chronic small vessel ischemia and age-related changes MRA brain; intracranial internal carotid arteries no significant abnormality no abnormality of cerebral arteries both anterior and middle no significant ab normality of basilar artery into cranial vertebral arteries posterior cerebral artery possible atherosclerotic irregularity bilaterally Echocardiogram; --Type II diabetes Current Visit: Yes Status: Acute We will put the patient on Accu-Chek every 6 hours with Humalog moderate dose coverage. Diabetic education --Hyponatremia mild; Present on admission, Continue D5 normal, mild improvement Closely monitor electrolytes -History of COPD (chronic obstructive pulmonary disease) Current Visit: Yes Status: Acute Oxygen , titrate O2 sats to more than 90% DuoNeb nebulizer every 4 hours. Albuterol by nebulizer every 4 hours as needed --Hypertensive urgency Current Visit: Yes Status: Acute Labetalol 10 mg IV every 6 hours as needed. Hydralazine 25 mg 3 times a day Hydralazine IV 10 mg every 4 hours as needed for blood pressure more than 150/90 Nifedipine 30 twice a day --Tobacco use disorder Current Visit: Yes Status: Acute We counseled the patient regarding quitting smoking. Will recommend nicotine patch if needed Smoking cessation counseling done Strongly advised to quit tobacco use -- CAD (coronary artery disease) Current Visit: Yes Status: Acute : Aspirin 325 mg p.o. daily. Lipitor 40 mg p.o. daily. Echocardiogram. Outpatient follow-up with cardiology --Full CODE STATUS -DVT prophylaxis Current Visit: Yes Status: Acute Subcu heparin GI prophylaxis ;Pepcid 20 mg p.o. twice daily Patient is a full code We will closely monitor the patient and adjust the management as needed Follow neuro work-up, will consult neurology tomorrow when neuro services available Advance care plan ;+32 min Patient's condition explained in detail with the patient Initial tests and reports discussed with the patient Diagnosis informed and explained Plan of care discussed in detail with the patient PT OT evaluation and possible home health at discharge if needed plan of care reviewed with patient, verbalized understanding 06/20/2021; Neuro work-up as mentioned above Patient blood pressures are difficult to control, will resume home meds when the list is available Follow neurology evaluation recommendations Plan of care reviewed with the patient and his nurse History Interval history: I have seen and examined the patient at the bedside Patient's chart and medications reviewed Patient blood pressures are uncontrolled resume home medication list when it is available No new complaints Hospitalist Physical - Constitutional Vitals: Temp Pulse Resp BP Pulse Ox 97.9 F 89 18 224/83 96 06/20/21 12:10 06/20/21 12:10 06/20/21 12:10 06/20/21 12:10 06/20/21 12:10 General appearance: Present: no acute distress, well-nourished - EENT Eyes: Present: PERRL, EOM intact - Neck Neck: Present: supple, normal ROM - Respiratory Respiratory effort: normal Respiratory: bilateral: diminished, negative: rales, rhonchi, wheezing - Cardiovascular Rhythm: regular Heart Sounds: Present: S1 & S2 - Extremities Extremities: no ischemia, No edema - Abdominal General gastrointestinal: soft, non-tender, non-distended, normal bowel sounds - Integumentary Integumentary: Present: clear, warm - Psychiatric Psychiatric: appropriate mood/affect, cooperative - Neurologic Neurologic: CNII-XII intact, moves all extremities HEART Score - HEART Score Troponin: Troponin T < 0.010 ng/mL (0.00-0.029) 06/18/21 17:59 Results - Labs CBC & Chem 7: 06/19/21 05:08 06/19/21 05:08 Labs: Laboratory Last Values WBC 2.4 K/mm3 (4.5-11.0) L 06/19/21 05:08 RBC 4.35 M/mm3 (3.65-5.03) 06/19/21 05:08 Hgb 14.0 gm/dl (11.8-15.2) 06/19/21 05:08 Hct 43.4 % (35.5-45.6) 06/19/21 05:08 MCV 100 fl (84-94) H 06/19/21 05:08 MCH 32 pg (28-32) 06/19/21 05:08 MCHC 32 % (32-34) 06/19/21 05:08 RDW 15.8 % (13.2-15.2) H 06/19/21 05:08 Plt Count 142 K/mm3 (140-440) 06/19/21 05:08 Lymph % (Auto) 12.0 % (13.4-35.0) L 06/19/21 05:08 [place]umas % (Auto) 3.0 % (0.0-7.3) 06/19/21 05:08 Eos % (Auto) 0.1 % (0.0-4.3) 06/19/21 05:08 Baso % (Auto) 0.3 % (0.0-1.8) 06/19/21 05:08 Lymph # (Auto) 0.3 K/mm3 (1.2-5.4) L 06/19/21 05:08 [place] # (Auto) 0.1 K/mm3 (0.0-0.8) 06/19/21 05:08 Eos # (Auto) 0.0 K/mm3 (0.0-0.4) 06/19/21 05:08 Baso # (Auto) 0.0 K/mm3 (0.0-0.1) 06/19/21 05:08 Seg Neutrophils % 84.6 % (40.0-70.0) H 06/19/21 05:08 Seg Neutrophils # 2.0 K/mm3 (1.8-7.7) 06/19/21 05:08 PT 12.9 Sec. (12.2-14.9) 06/18/21 17:59 INR 0.88 (0.87-1.13) 06/18/21 17:59 APTT 33.6 Sec. (24.2-36.6) 06/18/21 17:59 Thrombin Time 14.0 Sec. (15.1-19.6) L 06/18/21 17:59 Sodium 134 mmol/L (137-145) L 06/19/21 05:08 Potassium 4.0 mmol/L (3.6-5.0) D 06/19/21 05:08 Chloride 98.0 mmol/L (98-107) 06/19/21 05:08 Carbon Dioxide 20 mmol/L (22-30) L 06/19/21 05:08 Anion Gap 20 mmol/L 06/19/21 05:08 BUN 13 mg/dL (9-20) 06/19/21 05:08 Creatinine 1.0 mg/dL (0.8-1.3) 06/19/21 05:08 Estimated GFR > 60 ml/min 06/19/21 05:08 BUN/Creatinine Ratio 13 % 06/19/21 05:08 Glucose 186 mg/dL (75-100) H 06/19/21 05:08 POC Glucose 106 mg/dL (70-105) H 06/20/21 12:05 Calcium 8.6 mg/dL (8.4-10.2) 06/19/21 05:08 Total Bilirubin 0.40 mg/dL (0.1-1.2) 06/18/21 17:59 AST 15 units/L (5-40) 06/18/21 17:59 ALT 9 units/L (7-56) 06/18/21 17:59 Alkaline Phosphatase 69 units/L (35-129) 06/18/21 17:59 Total Creatine Kinase 116 units/L (55-170) 06/18/21 17:59 CK-MB (CK-2) 4.5 ng/mL (0.0-4.0) H 06/18/21 17:59 CK-MB (CK-2) Rel Index 3.8 (0-4) 06/18/21 17:59 Troponin T < 0.010 ng/mL (0.00-0.029) 06/18/21 17:59 Total Protein 6.8 g/dL (6.3-8.2) 06/18/21 17:59 Albumin 4.2 g/dL (3.9-5) 06/18/21 17:59 Albumin/Globulin Ratio 1.6 % 06/18/21 17:59 Triglycerides 173 mg/dL (2-149) H 06/19/21 05:08 Cholesterol 177 mg/dL (50-199) 06/19/21 05:08 LDL Cholesterol Direct 118 mg/dL (50-130) 06/19/21 05:08 HDL Cholesterol 35 mg/dL (40-59) L 06/19/21 05:08 Cholesterol/HDL Ratio 5.05 % 06/19/21 05:08 Plasma/Serum Alcohol < 0.01 % (0-0.07) 06/18/21 17:59 Active Medications - Current Medications Current Medications: Generic Name Dose Route Start Last Admin Trade Name Freq PRN Reason Stop Dose Admin Acetaminophen 650 mg 06/18/21 21:59 Acetaminophen 325 Mg Tab PO Q4H PRN Pain MILD(1-3)/Fever >100.5/MACK Albuterol 2.5 mg 06/18/21 21:59 Albuterol 2.5 Mg/3 Ml Nebu IH Q4HRT PRN Shortness Of Breath Albuterol/Ipratropium 1 ampul 06/19/21 02:00 06/20/21 09:35 Ipratropium/Albuterol Sulfate 3 Ml Ampul.Neb IH Not Given Q6HRT YULIYA Aspirin 325 mg 06/19/21 10:00 06/20/21 12:06 Aspirin 325 Mg Tab PO 325 mg QDAY YULIYA Administration Atorvastatin Calcium 40 mg 06/18/21 22:00 06/19/21 22:11 Atorvastatin 40 Mg Tab PO 40 mg QHS YULIYA Administration Famotidine 20 mg 06/18/21 22:00 06/20/21 12:06 Famotidine 20 Mg Tab PO 20 mg BID YULIYA Administration Heparin Sodium (Porcine) 5,000 unit 06/18/21 22:00 06/20/21 12:06 Heparin 5,000 Unit/1 Ml Vial SUB-Q 5,000 unit Q12HR YULIYA Administration Hydralazine HCl 10 mg 06/20/21 00:10 06/20/21 04:49 Hydralazine 20 Mg/1 Ml Inj IV 10 mg Q6HR PRN Administration Hypertension Hydromorphone HCl 0.5 mg 06/18/21 21:59 Hydromorphone 1 Mg/1 Ml Inj IV Q3H PRN Pain , Severe (7-10) Dextrose/Sodium Chloride 1,000 mls @ 75 mls/hr 06/18/21 22:00 06/18/21 23:04 D5ns IV 75 mls/hr DIRECT YULIYA Administration Morphine Sulfate 2 mg 06/18/21 21:59 06/20/21 05:22 Morphine 2 Mg/1 Ml Inj IV 2 mg Q4H PRN Administration Pain, Moderate (4-6) Ondansetron HCl 4 mg 06/18/21 21:59 Ondansetron 4 Mg/2 Ml Inj IV Q8H PRN Nausea And Vomiting Sodium Chloride 10 ml 06/18/21 22:00 06/20/21 12:06 Sodium Chloride 0.9% 10 Ml Flush Syringe IV 10 ml BID YULIYA Administration Sodium Chloride 10 ml 06/18/21 21:59 Sodium Chloride 0.9% 10 Ml Flush Syringe IV PRN PRN LINE FLUSH
[2021-06-20] MEDS ORDERED: NIFEdipine XL 30 MG TAB PO ONE (13:39)
[2021-06-20] MEDS ORDERED: hydrALAZINE 20 MG/1 ML INJ IV PRN (13:40)
[2021-06-20] MEDS: hydrALAZINE 25 MG TAB PO SCH ×2 (13:56→22:19)
[2021-06-20] MEDS ORDERED: dilTIAZem CD 180 MG CAP PO ONE (18:46)
[2021-06-20] MEDS: NIFEdipine XL 30 MG TAB PO SCH (22:19)
[2021-06-21] MEDS: IPRATROPIUM/ALBUTEROL SULFATE 3 ML AMPUL.NEB IH SCH ×3 (00:10→14:57)
[2021-06-21 06:12] LABS: BUN/Creatinine Ratio 22; Blood Urea Nitrogen 13 mg/dL (9-20); Hemolysis Index 31
[2021-06-21] MEDS: hydrALAZINE 25 MG TAB PO SCH ×3 (06:25→21:57)
--- NOTE | 2021-06-21 09:17 | Electrocardiograph Report ---
[facility] Test Date: 2021-06-18 Test Time: 17:48:42 Pat Name: FUNMI PEREA Department: Room: A486 Gender: M Director Call [employer] Sales: KRISTYN : 1950 Requested By: MICHELLE SANTANA Order Number: [id number] Reading MD: Donaldo Ling Measurements Intervals [place] Rate: 51 P: 41 MS: 151 QRS: -25 QRSD: 110 T: 207 QT: 556 QTc: 512 Interpretive Statements Sinus rhythm Probable left atrial enlargement Abnormal T, consider ischemia, diffuse leads Prolonged QT interval No previous ECG available for comparison Electronically Signed On 06-21-2021 9:16:50 EST by Donaldo Ling
[2021-06-21] MEDS ORDERED: NON-FORMULARY EACH (Duloxetine Hcl [Cymbalta] 60 MG Capsule.Dr) PO SCH (10:00)
[2021-06-21] MEDS: ASPIRIN 325 MG TAB PO SCH (10:34)
[2021-06-21] MEDS: FAMOTIDINE 20 MG TAB PO SCH ×2 (10:35→21:57)
[2021-06-21] MEDS: NIFEdipine XL 30 MG TAB PO SCH ×2 (10:35→21:57)
[2021-06-21] MEDS: DULoxetine 30 MG CAP PO SCH (10:35)
[2021-06-21] MEDS: HEPARIN 5,000 UNIT/1 ML VIAL SUB-Q SCH ×2 (10:37→21:58)
[2021-06-21] MEDS: dilTIAZem CD 180 MG CAP PO SCH (10:37)
[2021-06-21] MEDS: TAMSULOSIN 0.4 MG CAP PO SCH (10:37)
--- NOTE | 2021-06-21 11:16 | Progress Note ---
Assessment and Plan Assessment and Plan 71-year-old -[place] male with past medical history of hypertension, [id number] DM and CAD with a stent was brought to the emergency room by his son for evaluation of a 2-day history of right-sided numbness and weakness. The initial triage note says that the patient was awake, alert, oriented, playing on his phone. When I went out to [facility] [place] 6 to evaluate the patient he was diaphoretic and unresponsive. - Patient Problems # Possible CVA (cerebral vascular accident) -he is with right side weakness and numbness -NIH#4-- today is #3 -CT brain is unremarkable -CTA brain and neck are remarkable for 30% stenosis in right proximal ICA -ON ASA and lipitor -MRI brain is remarkable for left posterior brayan acute infarct -EEG is cancelled -LDL#118 -Echo is with Ef#60% -cardiac moniter NSR -BP# 217/87--184/59 # Possible underlying mild dementia -vascular -Check b12 and TSH WNL -MRI brain is noted # Unsteady gait -possibly related to new CVA -posterior bryaan -PT therapy # Diabetes -We will put the patient on Accu-Chek every 6 hours with Humalog moderate dose coverage. - Diabetic education -A1C is pending # COPD (chronic obstructive pulmonary disease) -Oxygen via nasal [place] 3 department at. - DuoNeb nebulizer every 4 hours. - Albuterol by nebulizer every 4 hours as needed # Hypertension -Labetalol 10 mg IV every 6 hours as needed. - We continue the home medication -BP <150/80 symptoms are > 2 days old # Tobacco use disorder -We counseled the patient regarding quitting smoking. We will put the patient on nicotine patch if needed # CAD (coronary artery disease) -Aspirin 325 mg p.o. daily. - Lipitor 40 mg p.o. daily. - Echocardiogram. -Outpatient follow-up with cardiology # DVT prophylaxis -Heparin 5000 units subcu every 12 hours for DVT prophylaxis. - Pepcid 20 mg p.o. twice daily for GI prophylaxis. - Patient is a full code VTE prophylaxis?: Chemical Plan of care discussed with patient/family: Yes PLAN 1- Better control of HTN <150/80 2- ASA 325 mg and Lipitor 40 mg 3- stop smoking 4- A1C<7 5-LDL<70 6- PCP follow up 7- Neurology follow up 8- vascular surgery follow up in a year or US carotid in a year will sign off Subjective Date of service: 06/21/21 Principal diagnosis: unsteady gait and right side numbness Interval history: doing well slight right side numbness ,no weakness steady Objective - Vital Sign Vital Signs - 12hr 06/21/21 06/21/21 06/21/21 00:54 04:47 05:47 Temperature 98.1 F 97.4 F L Pulse Rate 92 H 100 H Respiratory 18 18 Rate Blood Pressure 184/59 191/70 O2 Sat by Pulse 96 95 98 Oximetry 06/21/21 08:29 Temperature 98.7 F Pulse Rate 110 H Respiratory 20 Rate Blood Pressure 209/73 O2 Sat by Pulse 93 Oximetry - General Apperance Constitutional: comfortable - EENT EENT: PERRL, mucous membranes moist - Respiratory Respiratory: chest non-tender, lungs clear, rhonchi - Cardiovascular Cardiovascular: regular rate, normal S1, normal S2 Extremities: no peripheral edema bilat, no clubbing, cyanosis - Gastrointestinal Gastrointestinal: normoactive bowel sounds - Integumentary Integumentary: normal - Neurologic Cranial nerve examination: PERRL, EOMI, facial droop Speech examination: intact Detailed motor examination: other (slight right upper drift with decrese sensationright side , gait is steady ) - Laboratory Findings CBC and BMP: 06/19/21 05:08 06/21/21 04:34 Abnormal Lab Findings: Abnormal Labs 06/18/21 06/18/21 06/18/21 17:42 17:59 17:59 WBC 3.0 L MCV 98 H RDW 15.8 H Lymph % (Auto) [place] % (Auto) 12.7 H Lymph # (Auto) 1.0 L Seg Neutrophils % Seg Neutrophils # 1.5 L Thrombin Time 14.0 L Sodium Potassium Chloride Carbon Dioxide Creatinine Glucose POC Glucose 121 H CK-MB (CK-2) Triglycerides HDL Cholesterol 06/18/21 06/19/21 06/19/21 17:59 05:08 05:08 WBC 2.4 L MCV 100 H RDW 15.8 H Lymph % (Auto) 12.0 L [place] % (Auto) Lymph # (Auto) 0.3 L Seg Neutrophils % 84.6 H Seg Neutrophils # Thrombin Time Sodium 133 L 134 L Potassium 3.2 L Chloride 95.0 L Carbon Dioxide 20 L Creatinine Glucose 156 H 186 H POC Glucose CK-MB (CK-2) 4.5 H Triglycerides HDL Cholesterol 06/19/21 06/20/21 06/20/21 05:08 08:34 12:05 WBC MCV RDW Lymph % (Auto) [place] % (Auto) Lymph # (Auto) Seg Neutrophils % Seg Neutrophils # Thrombin Time Sodium Potassium Chloride Carbon Dioxide Creatinine Glucose POC Glucose 156 H 106 H CK-MB (CK-2) Triglycerides 173 H HDL Cholesterol 35 L 06/21/21 04:34 WBC MCV RDW Lymph % (Auto) [place] % (Auto) Lymph # (Auto) Seg Neutrophils % Seg Neutrophils # Thrombin Time Sodium Potassium 3.2 L Chloride Carbon Dioxide Creatinine 0.6 L Glucose 103 H POC Glucose CK-MB (CK-2) Triglycerides HDL Cholesterol
--- NOTE | 2021-06-21 12:52 | Progress Note ---
Assessment and Plan Assessment and plan: --CVA (cerebral vascular accident) Current Visit: Yes Status: Acute Not candidate for tPA Continue aspirin 325 mg p.o. daily. Continue Lipitor 40 mg p.o. daily. Follow neuro work-up PT OT and speech, rehab evaluation. MRI of the brain and MRI of the brain and neck with and without contrast. EEG. Echocardiogram. Neurology evaluation --Neuro work-up so far CT head without contrast; no evidence of acute infarction no intracranial hemorr morena CTA neck; no occlusion or high-grade stenosis of the carotid or vertebral arteries approximately 30% stenosis CTA head; no proximal large vessel occlusion no high-grade stenosis of the major intracranial vessels MRI brain focal area of acute ischemic injury into dorsal left brayan 9 mm, Chronic small vessel ischemia and age-related changes MRA brain; intracranial internal carotid arteries no significant abnormality no abnormality of cerebral arteries both anterior and middle no significant ab normality of basilar artery into cranial vertebral arteries posterior cerebral artery possible atherosclerotic irregularity bilaterally Echocardiogram; --Type II diabetes Current Visit: Yes Status: Acute We will put the patient on Accu-Chek every 6 hours with Humalog moderate dose coverage. Diabetic education --Hyponatremia mild; Present on admission, Continue D5 normal, mild improvement Closely monitor electrolytes -History of COPD (chronic obstructive pulmonary disease) Current Visit: Yes Status: Acute Oxygen , titrate O2 sats to more than 90% DuoNeb nebulizer every 4 hours. Albuterol by nebulizer every 4 hours as needed --Hypertensive urgency Current Visit: Yes Status: Acute Labetalol 10 mg IV every 6 hours as needed. Hydralazine 25 mg 3 times a day Hydralazine IV 10 mg every 4 hours as needed for blood pressure more than 150/90 Nifedipine 30 twice a day --Tobacco use disorder Current Visit: Yes Status: Acute We counseled the patient regarding quitting smoking. Will recommend nicotine patch if needed Smoking cessation counseling done Strongly advised to quit tobacco use -- CAD (coronary artery disease) Current Visit: Yes Status: Acute : Aspirin 325 mg p.o. daily. Lipitor 40 mg p.o. daily. Echocardiogram. Outpatient follow-up with cardiology --Full CODE STATUS -DVT prophylaxis Current Visit: Yes Status: Acute Subcu heparin GI prophylaxis ;Pepcid 20 mg p.o. twice daily Patient is a full code We will closely monitor the patient and adjust the management as needed Follow neuro work-up, will consult neurology tomorrow when neuro services available Advance care plan ;+32 min Patient's condition explained in detail with the patient Initial tests and reports discussed with the patient Diagnosis informed and explained Plan of care discussed in detail with the patient PT OT evaluation and possible home health at discharge if needed plan of care reviewed with patient, verbalized understanding Brief history and daily hospital course: 71-year-old male patient with history of hypertension type 2 diabetes mellitus coronary artery disease status post stent placement was admitted through emergency room with right-sided numbness and weakness, code stroke was initiated patient is not a candidate for tPA underwent extensive neuro work-up and MRI brain revealed focal area of acute ischemic injury into the distal M2 dorsal left brayan with chronic vessel ischemia and age-related changes, neurology PT OT have evaluated the patient medications optimized. Stable for discharge, except for uncontrolled blood pressures/hypertensive urgency, antihypertensive medications optimized, Closely monitor may discharge home tomorrow if stable 06/20/2021; Neuro work-up as mentioned above Patient blood pressures are difficult to control, will resume home meds when the list is available Follow neurology evaluation recommendations Plan of care reviewed with the patient and his nurse 06/21/2021; patient's blood pressures are uncontrolled In spite of being on multiple antihypertensives, will closely monitor and adjust as needed History Interval history: I have seen and examined the patient at the bedside Patient's chart and medications reviewed Patient feels slightly better ambulatory without support However blood pressures are uncontrolled ranging in 200s systolic and 110 diastolic Patient denies any chest pain or shortness of breath Hospitalist Physical - Constitutional Vitals: Temp Pulse Resp BP Pulse Ox 98.5 F 103 H 18 176/70 98 06/21/21 11:59 06/21/21 11:59 06/21/21 11:59 06/21/21 11:59 06/21/21 11:59 General appearance: Present: no acute distress, well-nourished - EENT Eyes: Present: PERRL, EOM intact - Neck Neck: Present: supple, normal ROM - Respiratory Respiratory effort: normal Respiratory: bilateral: diminished, negative: rales, rhonchi, wheezing - Cardiovascular Rhythm: regular Heart Sounds: Present: S1 & S2 - Extremities Extremities: no ischemia, No edema - Abdominal General gastrointestinal: soft, non-tender, non-distended, normal bowel sounds - Integumentary Integumentary: Present: clear, warm - Psychiatric Psychiatric: appropriate mood/affect, cooperative - Neurologic Neurologic: CNII-XII intact, moves all extremities HEART Score - HEART Score Troponin: Troponin T < 0.010 ng/mL (0.00-0.029) 06/20/21 12:31 Results - Labs CBC & Chem 7: 06/19/21 05:08 06/21/21 04:34 Labs: Laboratory Last Values WBC 2.4 K/mm3 (4.5-11.0) L 06/19/21 05:08 RBC 4.35 M/mm3 (3.65-5.03) 06/19/21 05:08 Hgb 14.0 gm/dl (11.8-15.2) 06/19/21 05:08 Hct 43.4 % (35.5-45.6) 06/19/21 05:08 MCV 100 fl (84-94) H 06/19/21 05:08 MCH 32 pg (28-32) 06/19/21 05:08 MCHC 32 % (32-34) 06/19/21 05:08 RDW 15.8 % (13.2-15.2) H 06/19/21 05:08 Plt Count 142 K/mm3 (140-440) 06/19/21 05:08 Lymph % (Auto) 12.0 % (13.4-35.0) L 06/19/21 05:08 [place] % (Auto) 3.0 % (0.0-7.3) 06/19/21 05:08 Eos % (Auto) 0.1 % (0.0-4.3) 06/19/21 05:08 Baso % (Auto) 0.3 % (0.0-1.8) 06/19/21 05:08 Lymph # (Auto) 0.3 K/mm3 (1.2-5.4) L 06/19/21 05:08 [place] # (Auto) 0.1 K/mm3 (0.0-0.8) 06/19/21 05:08 Eos # (Auto) 0.0 K/mm3 (0.0-0.4) 06/19/21 05:08 Baso # (Auto) 0.0 K/mm3 (0.0-0.1) 06/19/21 05:08 Seg Neutrophils % 84.6 % (40.0-70.0) H 06/19/21 05:08 Seg Neutrophils # 2.0 K/mm3 (1.8-7.7) 06/19/21 05:08 PT 12.9 Sec. (12.2-14.9) 06/18/21 17:59 INR 0.88 (0.87-1.13) 06/18/21 17:59 APTT 33.6 Sec. (24.2-36.6) 06/18/21 17:59 Thrombin Time 14.0 Sec. (15.1-19.6) L 06/18/21 17:59 Sodium 139 mmol/L (137-145) 06/21/21 04:34 Potassium 3.2 mmol/L (3.6-5.0) L 06/21/21 04:34 Chloride 100.4 mmol/L (98-107) 06/21/21 04:34 Carbon Dioxide 24 mmol/L (22-30) 06/21/21 04:34 Anion Gap 18 mmol/L 06/21/21 04:34 BUN 13 mg/dL (9-20) 06/21/21 04:34 Creatinine 0.6 mg/dL (0.8-1.3) L 06/21/21 04:34 Estimated GFR > 60 ml/min 06/21/21 04:34 BUN/Creatinine Ratio 22 % 06/21/21 04:34 Glucose 103 mg/dL (75-100) H 06/21/21 04:34 POC Glucose 94 mg/dL (70-105) 06/20/21 15:58 Calcium 9.0 mg/dL (8.4-10.2) 06/21/21 04:34 Magnesium 1.90 mg/dL (1.7-2.3) 06/21/21 04:34 Total Bilirubin 0.40 mg/dL (0.1-1.2) 06/18/21 17:59 AST 15 units/L (5-40) 06/18/21 17:59 ALT 9 units/L (7-56) 06/18/21 17:59 Alkaline Phosphatase 69 units/L (35-129) 06/18/21 17:59 Total Creatine Kinase 116 units/L (55-170) 06/18/21 17:59 CK-MB (CK-2) 4.5 ng/mL (0.0-4.0) H 06/18/21 17:59 CK-MB (CK-2) Rel Index 3.8 (0-4) 06/18/21 17:59 Troponin T < 0.010 ng/mL (0.00-0.029) 06/20/21 12:31 Total Protein 6.8 g/dL (6.3-8.2) 06/18/21 17:59 Albumin 4.2 g/dL (3.9-5) 06/18/21 17:59 Albumin/Globulin Ratio 1.6 % 06/18/21 17:59 Triglycerides 173 mg/dL (2-149) H 06/19/21 05:08 Cholesterol 177 mg/dL (50-199) 06/19/21 05:08 LDL Cholesterol Direct 118 mg/dL (50-130) 06/19/21 05:08 HDL Cholesterol 35 mg/dL (40-59) L 06/19/21 05:08 Cholesterol/HDL Ratio 5.05 % 06/19/21 05:08 Vitamin B12 291.2 pg/mL (211-911) 06/20/21 12:31 TSH 2.140 mlU/mL (0.270-4.200) 06/20/21 12:31 Plasma/Serum Alcohol < 0.01 % (0-0.07) 06/18/21 17:59 Epps/IV: Voiding Method Urinal Active Medications - Current Medications Current Medications: Generic Name Dose Route Start Last Admin Trade Name Freq PRN Reason Stop Dose Admin Acetaminophen 650 mg 06/18/21 21:59 Acetaminophen 325 Mg Tab PO Q4H PRN Pain MILD(1-3)/Fever >100.5/MACK Albuterol 2.5 mg 06/18/21 21:59 Albuterol 2.5 Mg/3 Ml Nebu IH Q4HRT PRN Shortness Of Breath Albuterol/Ipratropium 1 ampul 06/20/21 20:00 06/21/21 08:28 Ipratropium/Albuterol Sulfate 3 Ml Ampul.Neb IH 1 ampul TIDRT YULIYA Administration Aspirin 325 mg 06/19/21 10:00 06/21/21 10:34 Aspirin 325 Mg Tab PO 325 mg QDAY YULIYA Administration Atorvastatin Calcium 20 mg 06/20/21 22:00 06/20/21 22:18 Atorvastatin 20 Mg Tab PO 20 mg QHS YULIYA Administration Diltiazem HCl 180 mg 06/21/21 10:00 06/21/21 10:37 Diltiazem Cd 180 Mg Cap PO 180 mg QDAY YULIYA Administration Duloxetine HCl 60 mg 06/21/21 10:00 06/21/21 10:35 Duloxetine 30 Mg Cap PO 60 mg QDAY YULIYA Administration Famotidine 20 mg 06/18/21 22:00 06/21/21 10:35 Famotidine 20 Mg Tab PO 20 mg BID YULIYA Administration Heparin Sodium (Porcine) 5,000 unit 06/18/21 22:00 06/21/21 10:37 Heparin 5,000 Unit/1 Ml Vial SUB-Q 5,000 unit Q12HR YULIYA Administration Hydralazine HCl 50 mg 06/20/21 14:00 06/21/21 06:25 Hydralazine 25 Mg Tab PO 50 mg Q8HR YULIYA Administration Hydralazine HCl 10 mg 06/20/21 13:40 Hydralazine 20 Mg/1 Ml Inj IV Q4H PRN Hypertension Hydromorphone HCl 0.5 mg 06/18/21 21:59 Hydromorphone 1 Mg/1 Ml Inj IV Q3H PRN Pain , Severe (7-10) Dextrose/Sodium Chloride 1,000 mls @ 75 mls/hr 06/18/21 22:00 06/18/21 23:04 D5ns IV 75 mls/hr DIRECT YULIYA Administration Isosorbide Mononitrate 60 mg 06/21/21 10:00 06/21/21 10:35 Isosorbide Mononitrate Er 60 Mg Tab PO 60 mg QDAY YULIYA Administration Morphine Sulfate 2 mg 06/18/21 21:59 06/20/21 05:22 Morphine 2 Mg/1 Ml Inj IV 2 mg Q4H PRN Administration Pain, Moderate (4-6) Nifedipine 30 mg 06/20/21 22:00 06/21/21 10:35 Nifedipine Xl 30 Mg Tab PO 30 mg Q12HR YULIYA Administration Ondansetron HCl 4 mg 06/18/21 21:59 Ondansetron 4 Mg/2 Ml Inj IV Q8H PRN Nausea And Vomiting Sodium Chloride 10 ml 06/18/21 22:00 06/21/21 10:38 Sodium Chloride 0.9% 10 Ml Flush Syringe IV 10 ml BID YULIYA Administration Sodium Chloride 10 ml 06/18/21 21:59 Sodium Chloride 0.9% 10 Ml Flush Syringe IV PRN PRN LINE FLUSH Tamsulosin HCl 0.4 mg 06/21/21 10:00 06/21/21 10:37 Tamsulosin 0.4 Mg Cap PO 0.4 mg QDAY YULIYA Administration
[2021-06-22] MEDS: hydrALAZINE 25 MG TAB PO SCH ×2 (06:54→15:06)
[2021-06-22] MEDS: IPRATROPIUM/ALBUTEROL SULFATE 3 ML AMPUL.NEB IH SCH ×4 (08:56→16:25)
--- NOTE | 2021-06-22 09:42 | Progress Note ---
Assessment and Plan Assessment and Plan 71-year-old -[place] male with past medical history of hypertension, [id number] DM and CAD with a stent was brought to the emergency room by his son for evaluation of a 2-day history of right-sided numbness and weakness. The initial triage note says that the patient was awake, alert, oriented, playing on his phone. When I went out to [facility] [place] 6 to evaluate the patient he was diaphoretic and unresponsive. - Patient Problems # Possible CVA (cerebral vascular accident) -he is with right side weakness and numbness -NIH#4-- today is #3 -CT brain is unremarkable -CTA brain and neck are remarkable for 30% stenosis in right proximal ICA -ON ASA and lipitor -MRI brain is remarkable for left posterior brayan acute infarct -EEG is cancelled -LDL#118 -Echo is with Ef#60% -cardiac moniter NSR -BP# 217/87--184/59 # Possible underlying mild dementia -vascular -Check b12 and TSH WNL -MRI brain is noted # Unsteady gait -possibly related to new CVA -posterior brayan -PT therapy # Diabetes -We will put the patient on Accu-Chek every 6 hours with Humalog moderate dose coverage. - Diabetic education -A1C is pending # COPD (chronic obstructive pulmonary disease) -Oxygen via nasal [place] 3 department at. - DuoNeb nebulizer every 4 hours. - Albuterol by nebulizer every 4 hours as needed # Hypertension -Labetalol 10 mg IV every 6 hours as needed. - We continue the home medication -BP <150/80 symptoms are > 2 days old # Tobacco use disorder -We counseled the patient regarding quitting smoking. We will put the patient on nicotine patch if needed # CAD (coronary artery disease) -Aspirin 325 mg p.o. daily. - Lipitor 40 mg p.o. daily. - Echocardiogram. -Outpatient follow-up with cardiology # DVT prophylaxis -Heparin 5000 units subcu every 12 hours for DVT prophylaxis. - Pepcid 20 mg p.o. twice daily for GI prophylaxis. - Patient is a full code VTE prophylaxis?: Chemical Plan of care discussed with patient/family: Yes PLAN 1- HTN is better controlled <150/80 2- ASA 325 mg and Lipitor 40 mg 3- stop smoking 4- A1C<7 5-LDL<70 6- PCP follow up 7- Neurology follow up 8- vascular surgery follow up in a year or US carotid in a year will sign off Subjective Date of service: 06/22/21 Principal diagnosis: unsteady gait and right side numbness Interval history: doing well slight right side numbness ,no weakness steady BP is better controlled 143/72 Objective - Vital Sign Vital Signs - 12hr 06/21/21 06/22/21 06/22/21 21:57 00:00 01:08 Temperature 97.9 F Pulse Rate 91 H Pulse Rate [ Anterior Bilateral Throughout] Respiratory 20 Rate Respiratory Rate [Anterior Bilateral Throughout] Blood Pressure 151/67 Blood Pressure 143/60 [Right] O2 Sat by Pulse 96 98 Oximetry 06/22/21 06/22/21 06/22/21 03:35 08:30 08:55 Temperature 97.9 F Pulse Rate 94 H Pulse Rate [ Anterior Bilateral Throughout] Respiratory 18 Rate Respiratory Rate [Anterior Bilateral Throughout] Blood Pressure 143/72 Blood Pressure [Right] O2 Sat by Pulse 100 99 97 Oximetry 06/22/21 06/22/21 08:57 09:01 Temperature Pulse Rate Pulse Rate [ 90 Anterior Bilateral Throughout] Respiratory Rate Respiratory 20 Rate [Anterior Bilateral Throughout] Blood Pressure Blood Pressure [Right] O2 Sat by Pulse 97 Oximetry - General Apperance Constitutional: comfortable - EENT EENT: PERRL, mucous membranes moist - Respiratory Respiratory: chest non-tender, lungs clear - Cardiovascular Cardiovascular: regular rate, normal S1, normal S2 Extremities: no peripheral edema bilat, no clubbing, cyanosis - Gastrointestinal Gastrointestinal: normoactive bowel sounds - Integumentary Integumentary: normal - Neurologic Cranial nerve examination: PERRL, EOMI, intact Fundoscopic examination: papilledema Speech examination: intact Detailed motor examination: grossly full strength in - Laboratory Findings CBC and BMP: 06/19/21 05:08 06/21/21 04:34 Abnormal Lab Findings: Abnormal Labs 06/18/21 06/18/21 06/18/21 17:42 17:59 17:59 WBC 3.0 L MCV 98 H RDW 15.8 H Lymph % (Auto) [place] % (Auto) 12.7 H Lymph # (Auto) 1.0 L Seg Neutrophils % Seg Neutrophils # 1.5 L Thrombin Time 14.0 L Sodium Potassium Chloride Carbon Dioxide Creatinine Glucose POC Glucose 121 H CK-MB (CK-2) Triglycerides HDL Cholesterol 06/18/21 06/19/21 06/19/21 17:59 05:08 05:08 WBC 2.4 L MCV 100 H RDW 15.8 H Lymph % (Auto) 12.0 L [place] % (Auto) Lymph # (Auto) 0.3 L Seg Neutrophils % 84.6 H Seg Neutrophils # Thrombin Time Sodium 133 L 134 L Potassium 3.2 L Chloride 95.0 L Carbon Dioxide 20 L Creatinine Glucose 156 H 186 H POC Glucose CK-MB (CK-2) 4.5 H Triglycerides HDL Cholesterol 06/19/21 06/20/21 06/20/21 05:08 08:34 12:05 WBC MCV RDW Lymph % (Auto) [place] % (Auto) Lymph # (Auto) Seg Neutrophils % Seg Neutrophils # Thrombin Time Sodium Potassium Chloride Carbon Dioxide Creatinine Glucose POC Glucose 156 H 106 H CK-MB (CK-2) Triglycerides 173 H HDL Cholesterol 35 L 06/21/21 06/21/21 06/22/21 04:34 16:03 01:53 WBC MCV RDW Lymph % (Auto) [place] % (Auto) Lymph # (Auto) Seg Neutrophils % Seg Neutrophils # Thrombin Time Sodium Potassium 3.2 L Chloride Carbon Dioxide Creatinine 0.6 L Glucose 103 H POC Glucose 119 H 122 H CK-MB (CK-2) Triglycerides HDL Cholesterol
[2021-06-22] MEDS ORDERED: BUDESONIDE 0.5 MG/2 ML NEBU IH SCH (10:00)
[2021-06-22] MEDS ORDERED: ARFORMOTEROL 15 MCG/2 ML NEBU IH SCH (10:00)
[2021-06-22] MEDS: FAMOTIDINE 20 MG TAB PO SCH (11:08)
[2021-06-22] MEDS: DULoxetine 30 MG CAP PO SCH (11:08)
[2021-06-22] MEDS: dilTIAZem CD 180 MG CAP PO SCH (11:08)
[2021-06-22] MEDS: ASPIRIN 325 MG TAB PO SCH (11:08)
[2021-06-22] MEDS: NIFEdipine XL 30 MG TAB PO SCH (11:08)
[2021-06-22] MEDS: TAMSULOSIN 0.4 MG CAP PO SCH (11:09)
[2021-06-22] MEDS: HEPARIN 5,000 UNIT/1 ML VIAL SUB-Q SCH (11:09)
[2021-06-22] MEDS ORDERED: ALBUTEROL 2.5 MG/3 ML NEBU IH PRN (12:00)
--- NOTE | 2021-06-22 13:48 | Discharge Summary ---
Providers - Providers Date of Admission: 06/18/21 21:59 Date of discharge: 06/22/21 Attending physician: PHILIP HUMPHREY 06/18/21 21:59 Consult to Physician [CONS] Routine Comment: Consulting Provider: VANESSA JENNINGS Physician Instructions: Reason For Exam: cva Occupational Therapy Evaluate and Treat [CONS] Routine Comment: Reason For Exam: Neuro deficits Physical Therapy Evaluation and Treat [CONS] Routine Comment: Reason For Exam: Neuro deficits 06/20/21 08:20 Speech Therapy Evaluation and Treat [CONS] Urgent Reason For Exam: possible stroke 06/22/21 13:40 Speech Therapy Evaluation and Treat [CONS] Routine Reason For Exam: f/u with swallowing function Primary care physician: [employer] Hospitalization Condition: Fair Hospital course: 71-year-old male patient with history of hypertension, type 2 diabetes mellitus, coronary artery disease status post stent placement was admitted through emergency room with right-sided numbness and weakness, code stroke was initiated, patient was not a candidate for tPA, underwent extensive neuro work- up and MRI brain revealed focal area of acute ischemic injury into the distal M2 into dorsal left brayan with chronic vessel ischemia and age-related changes. Neurology PT OT have evaluated the patient, medications optimized for uncontrolled blood pressures/hypertensive urgency. Patient was then discharged home in stable condition with outpatient follow-up. Counseled for tobacco cessation. --Neuro work-up: CT head without contrast; no evidence of acute infarction no intracranial hemorrhage CTA neck; no occlusion or high-grade stenosis of the carotid or vertebral arteries approximately 30% stenosis CTA head; no proximal large vessel occlusion no high-grade stenosis of the major intracranial vessels MRI brain focal area of acute ischemic injury into dorsal left brayan 9 mm, Chronic small vessel ischemia and age-related changes MRA brain; intracranial internal carotid arteries no significant abnormality no abnormality of cerebral arteries both anterior and middle no significant abnormality of basilar artery into cranial vertebral arteries posterior cerebral artery possible atherosclerotic irregularity bilaterally Echocardiogram; EF 60% Disposition: 01 HOME / SELF CARE / HOMELESS Final Discharge Diagnosis (Prints w/discharge instructions): --Acute CVA with ischemic injury in 2 dorsal left brayan. -- Diabetes mellitus type 2. -- Mild hyponatremia. -- COPD. -- Hypertensive urgency. -- Tobacco abuse. -- History of coronary artery disease. --BPH Time spent for discharge: 34 minutes Core Measure Documentation - Palliative Care Palliative Care/ Comfort Measures: Not Applicable - Core Measures Any of the following diagnoses?: stroke - Stroke Discharge Requirements Statin for LDL = or >70 mg/dl on DC: Yes Anticoag for atrial fib/atrial flutter: Not Applicable Antithrombotic for ischemic stroke: Yes Exam - Physical Exam Narrative exam: GENERAL: well-developed and well-nourished elderly male lying on bed appeared to be in no discomfort. HEENT: Normocephalic. Atraumatic. No conjunctival congestion or icterus. Patient has moist mucous membranes. NECK: Supple. Trachea midline. CHEST/LUNGS: Clear to auscultated bilaterally, breathing nonlabored. No wheezes crackles or rhonchi. HEART/CARDIOVASCULAR: Regular in rate and rhythm. S1 and S2 positive. ABDOMEN: Abdomen is soft, nontender. Patient has normal bowel sounds. SKIN: There is no rash. Warm and dry. NEURO: No focal motor deficit. Follows command. MUSCULOSKELETAL: No joint effusion or tenderness. EXTRIMITY: No edema, no cyanosis or clubbing. PSYCH: Cooperative. - Constitutional Vitals: Temp Pulse Resp BP Pulse Ox 97.8 F 103 H 20 146/67 96 06/22/21 09:17 06/22/21 12:07 06/22/21 12:07 06/22/21 09:17 06/22/21 09:17 Plan Activity: advance as tolerated Weight Bearing Status: Weight Bear as Tolerated Diet: low fat, low salt Special Instructions: record daily BP diary, smoking cessation Follow up with: PRIMARY MD JOVAN [Primary Care Provider] - 3-5 Days JORDI KEMP MD [Staff Physician] - 7 Days Prescriptions: hydrALAZINE [Apresoline TAB] 50 mg PO Q8HR #90 tablet Aspirin 325 mg PO QDAY #30 tablet NIFEdipine XL [Procardia Xl] 30 mg PO Q12HR #60 tablet
[2021-06-22 15:06] VITALS: BP 144/63
== END 2021-06-22 17:50 | disposition home or self-care (01) | DRG 65 ==
LOC: ED 17:18 → 4A 21:59
PROVIDERS: ADMIT Hospitalist; ATTEND Internal Medicine
DX: I63.9 Cerebral infarction, unspecified (principal); E87.1 Hypo-osmolality and hyponatremia; G81.91 Hemiplegia, unspecified affecting right dominant side; I16.0 Hypertensive urgency; E11.9 Type 2 diabetes mellitus without complications; F17.200 Nicotine dependence, unspecified, uncomplicated; J44.9 Chronic obstructive pulmonary disease, unspecified; I50.9 Heart failure, unspecified; I25.2 Old myocardial infarction; I11.0 Hypertensive heart disease with heart failure; I25.10 Atherosclerotic heart disease of native coronary artery without angina pectoris; Z71.6 Tobacco abuse counseling; N40.0 Benign prostatic hyperplasia without lower urinary tract symptoms; Z88.8 Allergy status to other drugs, medicaments and biological substances
CPT/HCPCS: 36415; 70450; 70496; 70498; 70544; 70551; 71045; 80048; 80053; 80061; 80320; 82550; 82553; 82607; 82962; 83735; 84443; 84484; 85025; 85610; 85670; 85730; 93005; 93306; 94640; 94644; G0378; J3490; G0480; J0360; J1644; J2270; J2930; J7042; Q9967